=== PATIENT | female | born 1955 | race Caucasian/White ===

== ENCOUNTER 2019-12-01 11:46 | Emergency (ER) | payer OTHER ==
--- OUTSIDE RECORDS SUMMARY | 2019-12-01 11:47 | XMS REPORT | Clinical Summary ---
:1955 Author Organization [facility] Address [address] [place] [address] Care Team Providers Name Role Phone Unavailable Primary Care Provider Unavailable Allergies Not on File Medications Not on file Active Problems Not on file Social History Tobacco Use Types Packs/Day Years Used Date Never Assessed Sex Assigned at Date Recorded Not on file Job Start Date Occupation Industry Not on file Not on file Not on file Travel History Travel Start Travel End No recent travel history available. 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
--- OUTSIDE RECORDS SUMMARY | 2019-12-01 11:48 | XMS REPORT ---
:1955 Author Organization [facility] t Address [address] [place] [address] Care Team Providers Name Role Phone DR ARIES Attending Clinician Unavailable DR ARIES Admitting Clinician Unavailable Problems This patient has no known problems. Allergies, Adverse Reactions, Alerts This patient has no known allergies or adverse reactions. Social History Social Habit Start Date Stop Date Quantity Comments Source Sex Assigned At Belkis ston [facility] Medications This patient has no known medications. Procedures This patient has no known procedures. Plan of Care Planned Activity Planned Date Details Comments Source Future Scheduled 2020-02-06 INFLUENZA VACCINE [facility] Test 00:00:00 [code = INFLUENZA VACCINE] Future Scheduled 2018 65+ PNEUMOCOCCAL [facility] Test 00:00:00 VACCINE (1 of 2 - PCV13) [code = 65+ PNEUMOCOCCAL VACCINE (1 of 2 - PCV13)] Future Scheduled 2003-09-07 BREAST CANCER [facility] Test 00:00:00 SCREENING [code = BREAST CANCER SCREENING] Future Scheduled 2003-09-07 COLONOSCOPY SCREENING [facility] Test 00:00:00 [code = COLONOSCOPY SCREENING] Future Scheduled 2003-09-07 SHINGLES VACCINES (#1) [place] [facility] Test 00:00:00 [code = SHINGLES VACCINES (#1)] Encounters Start End Encounter Admission Attending Care Care Encounter Source Date/Time Date/Time Type Type Clinicians Facility Department ID 2017-05-21 2017-05-21 Outpatient JT ALVARADO [id number] [facility] 07:20:00 12[facility] Results This patient has no known results.
[2019-12-01 12:19] LABS: Basophils % 1.1 % (0-1.3); Hematocrit 40.5 % (36.0-45.0); Lymphocytes % 28.2 % (15.3-44.8); MPV 9.4 fL (7.6-11.3); RBC Red Blood Cell Count 4.45 M/uL (3.86-4.86)
[2019-12-01] MEDS ORDERED: FENTANYL CITR 100 MCG/2 ML ONE ×2 (12:21→14:39)
[2019-12-01] MEDS ORDERED: ONDANSETRON 4 MG/2 ML VIAL ONE ×2 (12:21→15:23)
[2019-12-01 12:38] LABS: Albumin 3.8 g/dL (3.4-5.0); Bilirubin Direct 0.1 mg/dL (0-0.2); Bilirubin Total 0.3 mg/dL (0.2-1.0); Potassium 3.7 mmol/L (3.5-5.1); Protein, Total 7.1 g/dL (6.4-8.2)
--- NOTE | 2019-12-01 12:38 | RAD REPORT ---
EXAM DESCRIPTION: CT - Stone Protocol - 12/01/2019 12:23 pm CLINICAL HISTORY: Flank pain. ABD PAIN COMPARISON: Abdomen Pelvis W Contrast dated 06/07/2017 TECHNIQUE: Axial images were obtained without oral or IV contrast. Lack of contrast limits solid org an and vascular assessment. The [id number] spans the entirety of the system partially obscuring uppermost abdomen and lung bases. Coronal reformatted images were obtained and reviewed. All CT scans are performed using dose optimization technique as appropriate and may include automated exposure control or mA/KV adjustment according to patient size. FINDINGS: The lower lung luna are clear. Imaged portions of the liver and spleen show no suspicious findings on non-contrast imaging.Cholecyst ectomy clips. The pancreas and adrenal glands are normal. No pathologic lymphadenopathy in the abdome n or pelvis. No urinary tract stones or obstructive uropathy. 8 mm cyst is seen lateral cortex of left kidney. No bowel obstruction, free air, free fluid or abscess. Normal appendix noted. Moderate L5-S1 spondylosis. IMPRESSION: No urinary tract stones or obstructive uropathy.
[2019-12-01] MEDS ORDERED: NA CHLORIDE 0.9% 500 ML ONE (12:54)
[2019-12-01] MEDS ORDERED: dexAMETHasone 10 MG/ML VIAL ONE (14:39)
[2019-12-01 15:53] VITALS: TEMP 97.6
[2019-12-01 15:56] VITALS: O2SAT 100
[2019-12-01 15:59] VITALS: BP 132/59
[2019-12-01 20:46] LABS: Urine Blood NEGATIVE (NEG); Urine Glucose NEGATIVE (NEG); Urine Protein NEGATIVE (NEG); Urine Specific Gravity 1.025 (1.005-1.030); Urine pH 6.5 (5.0-7.0)
--- NOTE | 2019-12-07 13:22 | ER ---
Nurse's Notes [facility] Name: Anny Acuna Age: 64 yrs Sex: Female : 1955 Arrival Date: 12/01/2019 Time: 11:47 Bed 18 Private MD: Urszula Peres C; Abdirizak Isaacs E Diagnosis: Muscle spasm of back Presentation: 11/30 11:57 Chief complaint: Patient states: Has had right lower back pain for the past week, she rb1 suspects that it is a kidney stone. Coronavirus screen: Proceed with normal triage. Ebola Screen: Patient denies travel to an Ebola-affected area in the 21 days before illness onset. Initial Sepsis Screen: Does the patient meet any 2 criteria? No. Patient's initial sepsis screen is negative. Risk Assessment: Do you want to hurt yourself or someone else? Patient reports no desire to harm self or others. Onset of symptoms was November 25, 2019. 11:57 Method Of Arrival: Ambulatory rb1 11:57 Acuity: [place] 3 rb1 11:57 Initial Sepsis Screen: Does the patient have a suspected source of infection? No. rb1 Patient's initial sepsis screen is negative. Historical: - Allergies: 11:57 Codeine; rb1 11:57 PENICILLINS; rb1 11:57 Procardia; rb1 - PMHx: 11:57 Hypertension; Migraines; Pneumonia; rb1 - PSHx: 11:57 L shoulder repair; Hysterectomy; Lithotripsy; rb1 - Immunization history:: Adult Immunizations up to date. - Social history:: Smoking status: Patient/guardian denies using. Screenin:57 Abuse screen: Denies threats or abuse. Nutritional screening: No deficits noted. rb1 Tuberculosis screening: No symptoms or risk factors identified. Fall Risk None identified. Assessment: 11:57 General: Appears uncomfortable, Behavior is calm, cooperative. Pain: Complains of pain rb1 in right mid back Pain currently is 9 out of 10 on a pain scale. Neuro: Level of Consciousness is awake, alert, obeys commands, Oriented to person, place, time, situation. Cardiovascular: Capillary refill < 3 seconds. Respiratory: Airway is patent Respiratory effort is even, unlabored, Respiratory pattern is regular, symmetrical. GI: Bowel sounds present X 4 quads. : No signs and/or symptoms were reported regarding the genitourinary system. Derm: Skin is pink, warm \T\ dry. Musculoskeletal: Range of motion: intact in all extremities. 11:57 GI: Abd is soft. rb1 12:55 Reassessment: Patient appears in no apparent distress at this time. Patient and/or rb1 family updated on plan of care and expected duration. Pain level reassessed. Patient is alert, oriented x 3, equal unlabored respirations, skin warm/dry/pink. Patient states symptoms have improved. 13:50 Reassessment: Patient appears in no apparent distress at this time. Patient and/or rb1 family updated on plan of care and expected duration. Pain level reassessed. Patient is alert, oriented x 3, equal unlabored respirations, skin warm/dry/pink. 14:50 Reassessment: Patient appears in no apparent distress at this time. No changes from rb1 previously documented assessment. 15:30 Reassessment: Patient appears in no apparent distress at this time. Patient and/or rb1 family updated on plan of care and expected duration. Pain level reassessed. Patient is alert, oriented x 3, equal unlabored respirations, skin warm/dry/pink. Vital Signs: 11:57 BP 148 / 70; Pulse 103; Resp 19; Temp 97.6; Pulse Ox 99% ; Weight 56.7 kg; Height 5 ft. rb1 3 in. (160.02 cm); Pain 9/10; 12:30 BP 113 / 52; Pulse 67; Resp 17; Pulse Ox 98% on R/A; rb1 13:30 BP 114 / 57; Pulse 65; Resp 16; Pulse Ox 100% ; rb1 14:30 BP 118 / 56; Pulse 62; Resp 17; Pulse Ox 100% ; rb1 15:30 BP 132 / 59; Pulse 64; Resp 17; Pulse Ox 100% on R/A; Pain 7/10; rb1 11:57 Body Mass Index 22.14 (56.70 kg, 160.02 cm) rb1 ED Course: 11:47 Patient arrived in ED. as 11:48 Urszula Peres MD is Private Physician. as 11:48 Abdirizak Isaacs MD is Private Physician. as 11:49 Lyndsey Sawyer, RN is Primary Nurse. rb1 11:52 Michael Powers PA is PHCP. jr8 11:52 Kehinde Hayward MD is Attending Physician. jr8 11:57 Patient has correct armband on for positive identification. Bed in low position. Call rb1 light in reach. Side rails up X 1. monitor car operator on. Pulse ox on. NIBP on. Warm blanket given. 11:57 Arm band placed on right wrist. rb1 12:00 Triage completed. rb1 12:08 Inserted saline lock: 22 gauge in right antecubital area, using aseptic technique. rb1 Blood collected. 12:24 CT Stone Protocol In Process Unspecified. EDMS 14:56 Abdirizak Isaacs MD is Referral Physician. jr8 15:37 No provider procedures requiring assistance completed. IV discontinued, intact, rb1 bleeding controlled, No redness/swelling at site. Pressure dressing applied. Administered Medications: 12:18 Drug: fentaNYL (PF) 50 mcg Route: IVP; Site: right antecubital; rb1 12:40 Follow up: Response: No adverse reaction; Pain is decreased rb1 12:19 Drug: Zofran (Ondansetron) 4 mg Route: IVP; Site: right antecubital; rb1 12:40 Follow up: Response: No adverse reaction rb1 12:54 Drug: NS 0.9% 500 ml Route: IV; Rate: bolus; Site: right antecubital; rb1 13:30 Drug: Robaxin 1 grams Route: IVPB; Infused Over: 1 hrs; Site: right antecubital; rb1 14:37 Drug: fentaNYL (PF) 50 mcg Route: IVP; Site: right antecubital; rb1 14:55 Follow up: Response: No adverse reaction; Pain is decreased rb1 14:37 Drug: Decadron - Dexamethasone 10 mg Route: IVP; Site: right antecubital; rb1 14:55 Follow up: Response: No adverse reaction rb1 Outcome: 14:56 Discharge ordered by . jr8 15:37 Patient left the ED. rb1 15:37 Discharged to home via wheelchair, with family. rb1 15:37 Condition: stable 15:37 Discharge instructions given to patient, Instructed on discharge instructions, follow up and referral plans. medication usage, Demonstrated understanding of instructions, follow-up care, medications, Prescriptions given X 2. Signatures: Dispatcher [employer] EDMS Beatriz Peter Josh, PA PA jr8 Lyndsey Sawyer, RN RN rb1
--- NOTE | 2019-12-07 13:22 | EDPHYS ---
Physician Documentation [facility] Name: Anny Acuna Age: 64 yrs Sex: Female : 1955 Arrival Date: 12/01/2019 Time: 11:47 Bed 18 Private MD: Urszula Peres C; Abdirizak Isaacs E ED Physician Kehinde Hayward HPI: 11/30 12:21 This 64 yrs old Female presents to ER via Ambulatory with complaints of jr8 Possible Kidney Stone. 12:21 The patient complains of pain in the right flank. The pain does not radiate. Onset: The jr8 symptoms/episode began/occurred acutely, 1 week(s) ago. Modifying factors: The symptoms are alleviated by change of position. Associated signs and symptoms: Pertinent positives: nausea. Severity of pain: At its worst the pain was moderate in the emergency department the pain is unchanged. It is unknown whether or not the patient has had similar symptoms in the past. The patient has not recently seen a physician. Denies trauma or injury. Historical: - Allergies: 11:57 Codeine; rb1 11:57 PENICILLINS; rb1 11:57 Procardia; rb1 - PMHx: 11:57 Hypertension; Migraines; Pneumonia; rb1 - PSHx: 11:57 L shoulder repair; Hysterectomy; Lithotripsy; rb1 - Immunization history:: Adult Immunizations up to date. - Social history:: Smoking status: Patient/guardian denies using. ROS: 12:21 Eyes: Negative for injury, pain, redness, and discharge, ENT: Negative for injury, jr8 pain, and discharge, Neck: Negative for injury, pain, and swelling, Cardiovascular: Negative for chest pain, palpitations, and edema, Respiratory: Negative for shortness of breath, cough, wheezing, and pleuritic chest pain, Abdomen/GI: Negative for abdominal pain, vomiting, diarrhea, and constipation. Positive for nausea MS/Extremity: Negative for injury and deformity, Skin: Negative for injury, rash, and discoloration, Neuro: Negative for headache, weakness, numbness, tingling, and seizure. 12:21 Back: Positive for flank pain, on the right. Exam: 12:21 Eyes: Pupils equal round and reactive to light, extra-ocular motions intact. Lids and jr8 lashes normal. Conjunctiva and sclera are non-icteric and not injected. Cornea within normal limits. Periorbital areas with no swelling, redness, or edema. ENT: Nares patent. No nasal discharge, no septal abnormalities noted. Tympanic membranes are normal and external auditory canals are clear. Oropharynx with no redness, swelling, or masses, exudates, or evidence of obstruction, uvula midline. Mucous membranes moist. Neck: Trachea midline, no thyromegaly or masses palpated, and no cervical lymphadenopathy. Supple, full range of motion without nuchal rigidity, or vertebral point tenderness. No Meningismus. Cardiovascular: Regular rate and rhythm with a normal S1 and S2. No gallops, murmurs, or rubs. Normal PMI, no JVD. No pulse deficits. Respiratory: Lungs have equal breath sounds bilaterally, clear to auscultation and percussion. No rales, rhonchi or wheezes noted. No increased work of breathing, no retractions or nasal flaring. Abdomen/GI: Soft, non-tender, with normal bowel sounds. No distension or tympany. No guarding or rebound. No evidence of tenderness throughout. Skin: Warm, dry with normal turgor. Normal color with no rashes, no lesions, and no evidence of cellulitis. MS/ Extremity: Pulses equal, no cyanosis. Neurovascular intact. Full, normal range of motion. Neuro: Awake and alert, GCS 15, oriented to person, place, time, and situation. Cranial nerves II-XII grossly intact. Motor strength 5/5 in all extremities. Sensory grossly intact. Cerebellar exam normal. Normal gait. 12:21 Back: pain, that is moderate, of the right flank and right mid back, ROM is normal, normal spinal alignment noted, CVA tenderness, that is mild, is noted on the right, vertebral tenderness, is not appreciated. Vital Signs: 11:57 BP 148 / 70; Pulse 103; Resp 19; Temp 97.6; Pulse Ox 99% ; Weight 56.7 kg; Height 5 ft. rb1 3 in. (160.02 cm); Pain 9/10; 12:30 BP 113 / 52; Pulse 67; Resp 17; Pulse Ox 98% on R/A; rb1 13:30 BP 114 / 57; Pulse 65; Resp 16; Pulse Ox 100% ; rb1 14:30 BP 118 / 56; Pulse 62; Resp 17; Pulse Ox 100% ; rb1 15:30 BP 132 / 59; Pulse 64; Resp 17; Pulse Ox 100% on R/A; Pain 7/10; rb1 11:57 Body Mass Index 22.14 (56.70 kg, 160.02 cm) rb1 MDM: 11:53 Patient medically screened. jr8 14:55 Data reviewed: vital signs, nurses notes, lab test result(s), radiologic studies, CT jr8 scan. Data interpreted: Pulse oximetry: on room air is 100 %. Interpretation: normal. Counseling: I had a detailed discussion with the patient and/or guardian regarding: the historical points, exam findings, and any diagnostic results supporting the discharge/admit diagnosis, lab results, radiology results, the need for outpatient follow up, a family practitioner, to return to the emergency department if symptoms worsen or persist or if there are any questions or concerns that arise at home. Response to treatment: the patient's symptoms have markedly improved after treatment. ED course: No acute findings on CT or labs. Discussed with patient that she most likely is having right sided back spasms. Will treat as such . 11/30 11:53 Order name: Basic Metabolic Panel; Complete Time: 12:39 [facility] 11/30 11:53 Order name: CBC with Diff; Complete Time: 12:39 [facility] 11/30 11:53 Order name: Hepatic Function; Complete Time: 12:39 11/30 11:53 Order name: Lipase; Complete Time: 12:39 [facility] 11/30 14:38 Order name: Urine Dipstick--Ancillary (enter results) eb 11/30 11:53 Order name: IV Saline Lock; Complete Time: 12:20 11/30 12:02 Order name: CT Stone Protocol; Complete Time: 12:43 11/30 11:53 Order name: Labs collected and sent; Complete Time: 13:48 jr Administered Medications: 12:18 Drug: fentaNYL (PF) 50 mcg Route: IVP; Site: right antecubital; rb1 12:40 Follow up: Response: No adverse reaction; Pain is decreased rb1 12:19 Drug: Zofran (Ondansetron) 4 mg Route: IVP; Site: right antecubital; rb1 12:40 Follow up: Response: No adverse reaction rb1 12:54 Drug: NS 0.9% 500 ml Route: IV; Rate: bolus; Site: right antecubital; rb1 13:30 Drug: Robaxin 1 grams Route: IVPB; Infused Over: 1 hrs; Site: right antecubital; rb1 14:37 Drug: fentaNYL (PF) 50 mcg Route: IVP; Site: right antecubital; rb1 14:55 Follow up: Response: No adverse reaction; Pain is decreased rb1 14:37 Drug: Decadron - Dexamethasone 10 mg Route: IVP; Site: right antecubital; rb1 14:55 Follow up: Response: No adverse reaction rb1 Disposition: 15:54 Co-signature as Attending Physician, Kehinde Hayward MD. rn Disposition: 12/01/19 14:56 Discharged to Home. Impression: Muscle spasm of back. - Condition is Stable. - Discharge Instructions: Muscle Cramps and Spasms, Back Exercises, [id number], Heat Therapy. - Prescriptions for Zanaflex 4 mg Oral Tablet - take 1 tablet by ORAL route every 8 hours As needed; 20 tablet. Medrol (Richard) 4 mg Oral Tablets, Dose Pack - take 1 tablet by ORAL route as directed - follow package instructions; 1 packet. - Medication Reconciliation Form, Thank You Letter, Antibiotic Education, Prescription Opioid Use form. - Follow up: Abdirizak Isaacs MD; When: 5 - 6 days; Reason: Recheck today's complaints, Continuance of care, Re-evaluation by your physician. - Problem is new. - Symptoms have improved. Signatures: Dispatcher [employer] EDMS Kehinde Hayward MD MD rn Roszak, Josh, PA PA jr8 Lyndsey Sawyer RN RN rb1 Corrections: (The following items were deleted from the chart) 15:37 14:56 12/01/2019 14:56 Discharged to Home. Impression: Muscle spasm of back. Condition rb1 is Stable. Forms are Medication Reconciliation Form, Thank You Letter, Antibiotic Education, Prescription Opioid Use. Follow up: Abdirizak Isaacs; When: 5 - 6 days; Reason: Recheck today's complaints, Continuance of care, Re-evaluation by your physician. Problem is new. Symptoms have improved. jr8
== END 2019-12-01 15:37 | disposition home or self-care (01) ==
LOC: ER 11:46
DX: M62.830 Muscle spasm of back (principal); I10 Essential (primary) hypertension; Z88.0 Allergy status to penicillin; Z88.5 Allergy status to narcotic agent; Z88.8 Allergy status to other drugs, medicaments and biological substances
CPT/HCPCS: 85025; 80048; 36415; 80076; 81003; 83690; 76377; 74176; 96375; 96374; 99284; J3010 ×2; J1100; J7040; J2405 ×2; J2800

== ENCOUNTER 2020-08-05 12:07 | Emergency (ER) | payer OTHER ==
--- OUTSIDE RECORDS SUMMARY | 2020-08-05 12:09 | XMS REPORT | Clinical Summary ---
:1955 Author Organization [facility] Address [address] [place] [address] Care Team Providers Name Role Phone Unavailable Primary Care Provider Unavailable Allergies Not on File Medications Not on file Active Problems Not on file Social History Tobacco Use Types Packs/Day Years Used Date Never Assessed Sex Assigned at Date Recorded Not on file Last Filed Vital Signs Not on file Plan of Treatment Health Maintenance Due Date Last Done Comments COVID-19 VACCINE (1 of 2) 1969 BREAST CANCER SCREENING 09/07/2003 COLONOSCOPY SCREENING 09/07/2003 SHINGLES VACCINES (#1) 09/07/2003 65+ PNEUMOCOCCAL VACCINE (1 of 1 - PPSV23) 2018 INFLUENZA VACCINE 02/06/2020 Results Not on fileafter 08/05/2019 Advance Directives For more information, please contact: [phone] Type Date 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
--- OUTSIDE RECORDS SUMMARY | 2020-08-05 12:09 | XMS REPORT | Continuity of Care Document ---
:1955 Author Organization [facility] t Address [address] [place] [address] Care Team Providers Name Role Phone DR ARIES Attending Clinician Unavailable DR ARIES Admitting Clinician Unavailable Problems This patient has no known problems. Allergies, Adverse Reactions, Alerts This patient has no known allergies or adverse reactions. Social History Social Habit Start Date Stop Date Quantity Comments Source Sex Assigned At Belkis ston [facility] Medications This patient has no known medications. Procedures This patient has no known procedures. Plan of Care Planned Activity Planned Date Details Comments Source Future Scheduled 2020-02[facility]06 [facility] [code = INFLUENZA VACCINE] Future Scheduled 2018 65+ PNEUMOCOCCAL [place] [facility] Test 00:00:00 VACCINE (1 of 1 - PPSV23) [code = 65+ PNEUMOCOCCAL VACCINE (1 of 1 - PPSV23)] Future Scheduled 2003-09-07 BREAST CANCER [facility] Test 00:00:00 SCREENING [code = BREAST CANCER SCREENING] Future Scheduled 2003-09-07 COLONOSCOPY SCREENING [facility] Test 00:00:00 [code = COLONOSCOPY SCREENING] Future Scheduled 2003-09-07 SHINGLES VACCINES (#1) [place] [facility] Test 00:00:00 [code = SHINGLES VACCINES (#1)] Future Scheduled 1969 COVID-19 VACCINE (1 of [place] [facility] Test 00:00:00 2) [code = COVID-19 VACCINE (1 of 2)] Encounters Start End Encounter Admission Attending Care Care Encounter Source Date/Time Date/Time Type Type Clinicians Facility Department ID 2017-05-21 2017-05-21 Outpatient JT [facility]VARADO [facility] [id number] [facility] 07:20:00 12:17:00 [facility] Results This patient has no known results.
--- NOTE | 2020-08-05 15:12 | ER ---
Nurse's Notes [facility] Name: Anny Acuna Age: 64 yrs Sex: Female : 1955 Arrival Date: 08/05/2020 Time: 12:24 Bed 11 Private MD: Diagnosis: acute allergic reaction: Moderna COVID vaccine Presentation: 08/05 13:00 Chief complaint: Patient states: Got second covid vaccine today (Moderna) right before ll1 1100 today. Started to have itching to entire body directly after the shot. Happened after the first injection but took longer to happen. Coronavirus screen: Client denies travel out of the [place] in the last 14 days. At this time, the client does not indicate any symptoms associated with coronavirus-19. Ebola Screen: Patient denies travel to an Ebola-affected area in the 21 days before illness onset. Onset: The symptoms/episode began/occurred acutely, suddenly. Anaphylaxis evaluation, no signs or symptoms of anaphylaxis were noted. Initial Sepsis Screen: Does the patient meet any 2 criteria? No. Patient's initial sepsis screen is negative. Does the patient have a suspected source of infection? No. Patient's initial sepsis screen is negative. Risk Assessment: Do you want to hurt yourself or someone else? Patient reports no desire to harm self or others. Onset of symptoms was August 05, 2020. 13:00 Method Of Arrival: Ambulatory ll1 13:00 Acuity: [place] 3 ll1 Historical: - Allergies: 12:59 Codeine; ll1 12:59 PENICILLINS; ll1 12:59 Procardia; ll1 12:59 gel caps; ll1 12:59 ANTIHISTAMINES; ll1 - PMHx: 12:59 Hypertension; Migraines; Pneumonia; ll1 - PSHx: 12:59 L shoulder repair; Hysterectomy; Lithotripsy; ll1 - Immunization history:: Flu vaccine is up to date. - Social history:: Smoking status: Patient denies any tobacco usage or history of. Screenin:23 Abuse screen: Denies threats or abuse. Denies injuries from another. Nutritional ss screening: No deficits noted. Tuberculosis screening: Never had TB. Fall Risk None identified. Assessment: 15:23 General: Appears in no apparent distress. Behavior is calm, cooperative. Pain: Denies ss pain. Neuro: Level of Consciousness is awake, alert, obeys commands, Oriented to person, place, time, situation. Cardiovascular: Capillary refill < 3 seconds is brisk in bilateral fingers Patient's skin is warm and dry. Respiratory: Airway is patent Respiratory effort is even, unlabored, Respiratory pattern is regular, symmetrical, Breath sounds are clear bilaterally. EENT: Throat is clear. Derm: Skin is pink, warm \T\ dry. Skin temperature is warm Reports itching that began just after receiving second dose of COVID vaccine. Denies difficulty breathing. Vital Signs: 13:00 BP 153 / 74; Pulse 71; Resp 15; Temp 97.6; Pulse Ox 99% ; Weight 55.34 kg; Height 5 ft. ll1 3 in. (160.02 cm); Pain 0/10; 13:00 Body Mass Index 21.61 (55.34 kg, 160.02 cm) ll1 ED Course: 12:24 Patient arrived in ED. am4 12:59 Arm band placed on. 1 13:01 Triage completed. 1 15:09 Ross Taylor MD is Attending Physician. kdr 15:12 Sharda Ponce, SHERITA is Primary Nurse. ss 15:23 Patient has correct armband on for positive identification. Bed in low position. Call ss light in reach. 15:23 No provider procedures requiring assistance completed. Patient did not have IV access ss during this emergency room visit. Administered Medications: 15:23 Drug: SOLU-Medrol 125 mg Route: IM; Site: right gluteus; ss 15:32 Follow up: Response: Medication administered at discharge. 15:23 Drug: Pepcid 20 mg Route: PO; 15:32 Follow up: Response: No adverse reaction; Medication administered at discharge. Outcome: 15:11 Discharge ordered by . kdr 15:23 Discharged to home ambulatory. ss 15:23 Condition: good 15:23 Discharge instructions given to patient, family, Instructed on discharge instructions, follow up and referral plans. medication usage, Demonstrated understanding of instructions, follow-up care, medications, Prescriptions given X 2. 15:32 Patient left the ED. ss Signatures: Ross Taylor MD MD kdr Sharda Ponce RN RN Joseph Kebede RN RN [facility] Ofelia Peter 4
--- NOTE | 2020-08-05 15:12 | EDPHYS ---
Physician Documentation [facility] Name: Anny Acuna Age: 64 yrs Sex: Female : 1955 Arrival Date: 08/05/2020 Time: 12:24 Bed 11 Private MD: ED Physician Ross Taylor HPI: 08/05 15:22 This 64 yrs old Female presents to ER via Ambulatory with complaints of kdr Allergic Reaction. Historical: - Allergies: 12:59 Codeine; ll1 12:59 PENICILLINS; ll1 12:59 Procardia; ll1 12:59 gel caps; ll1 12:59 ANTIHISTAMINES; ll1 - PMHx: 12:59 Hypertension; Migraines; Pneumonia; ll1 - PSHx: 12:59 L shoulder repair; Hysterectomy; Lithotripsy; ll1 - Immunization history:: Flu vaccine is up to date. - Social history:: Smoking status: Patient denies any tobacco usage or history of. Vital Signs: 13:00 BP 153 / 74; Pulse 71; Resp 15; Temp 97.6; Pulse Ox 99% ; Weight 55.34 kg; Height 5 ft. ll1 3 in. (160.02 cm); Pain 0/10; 13:00 Body Mass Index 21.61 (55.34 kg, 160.02 cm) ll1 MDM: 15:11 Patient medically screened. kdr Administered Medications: 15:23 Drug: SOLU-Medrol 125 mg Route: IM; Site: right gluteus; ss 15:32 Follow up: Response: Medication administered at discharge. 15:23 Drug: Pepcid 20 mg Route: PO; ss 15:32 Follow up: Response: No adverse reaction; Medication administered at discharge. Disposition: 08/05/20 15:11 Discharged to Home. Impression: acute allergic reaction: Moderna COVID vaccine. - Condition is Stable. - Discharge Instructions: Allergies, Adult, Pruritus. - Prescriptions for Pepcid 20 mg Oral Tablet - take 1 tablet by ORAL route every 12 hours for 5 days; 10 tablet. Medrol (Richard) 4 mg Oral Tablets, Dose Pack - take 1 tablet by ORAL route as directed - follow package instructions; 1 packet. - Medication Reconciliation Form, Thank You Letter, Prescription Opioid Use form. - Follow up: Private Physician; When: 2 - 3 days; Reason: If symptoms return, Further diagnostic work-up, Recheck today's complaints, Continuance of care, Re-evaluation by your physician. - Problem is new. - Symptoms have improved. Addendum: 08/18/2020 07:14 Addendum: CC: Itching s/p second Moderna COVID vaccine HPI: The patient has just k dr received her second Moderna COVID vaccine and now has itching all over her body. She had a limited and more delayed reaction to the first short. This time the reaction is more shetty and intense. She denies respiratory difficulty and is not in any apparent life threatening situation. ROS; Const: No fever, chills, Eyes: no visual changes or c/o, Neck: no pain or injury, CV: no CP or palpitations, Resp: mild SOB but no cough or congestion, Abd: no n/v/d or pain, Back: no pain or injury, : no pain or bleeding, MS/Ext: no pain, injury, swelling or tingling, Skin: No hives but diffuse itching, no lacerations, pain, injury, good skin turgor, Neuro: Grossly intact and no deficits, Psych: Appropriate for age, Allergy: no rashes but diffuse itching, EXAM: Const: WDWN WF mild distress, Head/Face: no injury, pain or deformity, Eyes: PERRLA, ENT: no pain, injury or bleeding, Neck: no pain, injury, FROM, no stridor, Chest/Axilla: No pain, injury or deformity, CV: no rubs, gallops, murmurs, regular rate and rhythm, Resp: CTAB and regular rate, Abd/GI: soft, NT, BS present in all quads and normal, Back: no injury or deformity, full ROM, MS/Ext: no injury or deformity, FROM, distal pulses good and equal, Skin: diffuse itching and minor erythema but no hives, rashes, ecchymosis and good turgor, Neuro: CN grossly intact, no other deficits, Psych: appropriate for age, no SO, HI or depression, MDM: The patient improved greatly with the interventions given. All VS, nursing notes reviewed. The patient was counseled on the results and need for follow-up. The patient was discharged in stable condition. She was happy with the care provided and the plan for discharge and follow-up. Signatures: Ross Taylor MD MD kdr Sharda Ponce RN RN ss Joseph Kebede RN RN ll1 Corrections: (The following items were deleted from the chart) 08/05 15:32 15:11 08/05/2020 15:11 Discharged to Home. Impression: acute allergic reaction: Moderna ss COVID vaccine. Condition is Stable. Forms are Medication Reconciliation Form, Thank You Letter, Antibiotic Education, Prescription Opioid Use. Follow up: Private Physician; When: 2 - 3 days; Reason: If symptoms return, Further diagnostic work-up, Recheck today's complaints, Continuance of care, Re-evaluation by your physician. Problem is new. Symptoms have improved. kdr
[2020-08-05] MEDS ORDERED: METHYLPREDNISOLONE 125 MG INJ ONE (15:29)
[2020-08-05] MEDS ORDERED: FAMOTIDINE 20 MG TAB ONE (15:30)
[2020-08-05 16:07] VITALS: BP 153/74; TEMP 97.6; O2SAT 99
== END 2020-08-05 15:32 | disposition home or self-care (01) ==
LOC: ER 12:07
DX: T80.52XA Anaphylactic reaction due to vaccination, initial encounter (principal); Z88.6 Allergy status to analgesic agent; Z88.0 Allergy status to penicillin; Z88.8 Allergy status to other drugs, medicaments and biological substances
CPT/HCPCS: 96372; 99283; J2930

== ENCOUNTER 2021-09-14 19:20 | Emergency (ER) | payer OTHER, MEDICARE ==
--- OUTSIDE RECORDS SUMMARY | 2021-09-14 19:23 | XMS REPORT | Continuity of Care Document ---
:1955 Author Organization [facility] t Address [address] [place] [address] [address]. [address] [place] [address] Care Team Providers Name Role Phone DR ARIES Attending Clinician Unavailable DR ARIES Admitting Clinician Unavailable Problems This patient has no known problems. Allergies, Adverse Reactions, Alerts This patient has no known allergies or adverse reactions. Medications This patient has no known medications. Procedures This patient has no known procedures. Encounters Start End Encounter Admission Attending Care Care Encounter Source Date/Time Date/Time Type Type Clinicians Facility Department ID 2017-05-21 2017-05-21 Outpatient [facility] [id number] [facility] 07:20:00 12:17:00 [facility] Results This patient has no known results.
[2021-09-14] MEDS ORDERED: IBUPROFEN 400 MG TAB ONE (20:04)
[2021-09-14] MEDS ORDERED: IBUPROFEN 200 MG TAB PO ONE (20:05)
[2021-09-14] MEDS ORDERED: HYDROCODONE/APAP 5/325 MG TAB ONE (20:05)
--- NOTE | 2021-09-14 20:58 | RAD REPORT ---
EXAM DESCRIPTION: RAD - Ankle Right 3 View - 09/14/2021 8:33 pm CLINICAL HISTORY: SWELLING COMPARISON: Ankle Left 3 View dated 09/22/2019 FINDINGS/IMPRESSION: Avulsion fracture at the distal fibular tip. Lateral soft tissue swelling is pr esent. No malalignment.
--- NOTE | 2021-09-14 21:14 | EDPHYS ---
Physician Documentation [facility] Name: Anny Acuna Age: 66 yrs Sex: Female : 1955 Arrival Date: 09/14/2021 Time: 19:23 Bed 9 Private MD: ED Physician Gary Tapia HPI: 09/14 20:00 This 66 yrs old Female presents to ER via Wheelchair with complaints of Ankle Swelling. cp 20:00 The patient presents with an injury, pain, that is acute, swelling, tenderness. The cp complaints affect the right ankle. Onset: The symptoms/episode began/occurred today. Context: resulted from a mis-step by the patient, The mechanism of injury involved inversion of the affected ankle. The patient can partially bear weight on the affected extremity. the patient is able to ambulate, with moderate difficulty. Associated signs and symptoms: The patient has no apparent associated signs or symptoms. Historical: - Allergies: 19:48 ANTIHISTAMINES; ld1 19:48 gel caps; ld1 19:48 Codeine; ld1 19:48 PENICILLINS; ld1 19:48 Procardia; ld1 - PMHx: 19:48 Hypertension; Migraines; Pneumonia; ld1 - Immunization history:: Adult Immunizations up to date, . - Social history:: Smoking status: Patient denies any tobacco usage or history of. Patient/guardian denies using alcohol. ROS: 20:05 Constitutional: Negative for body aches, chills, fever, poor PO intake. cp 20:05 Cardiovascular: Negative for chest pain, palpitations. 20:05 Respiratory: Negative for cough, shortness of breath, wheezing. 20:05 Abdomen/GI: Negative for abdominal pain, nausea, vomiting, and diarrhea. 20:05 MS/extremity: Positive for ecchymosis, pain, swelling, tenderness, of the lateral aspect right ankle, Negative for deformity, paresthesias. 20:05 All other systems are negative. Exam: 20:10 Constitutional: The patient appears in no acute distress, alert, awake, well developed, cp well nourished, uncomfortable. 20:10 Head/Face: Normocephalic, atraumatic. cp 20:10 Neck: ROM/movement: is normal, is supple, without pain, no range of motions limitations. 20:10 Cardiovascular: Rate: normal. 20:10 Respiratory: the patient does not display signs of respiratory distress, Respirations: normal, no use of accessory muscles, no retractions, labored breathing, is not present. 20:10 Back: pain, is absent, ROM is normal. 20:10 Musculoskeletal/extremity: Extremities: grossly normal except: noted in the lateral malleolus of right ankle: ecchymosis, pain, swelling, tenderness, ROM: limited passive range of motion due to pain, in the right ankle, Pulses: noted to be 2+ in the right dorsalis pedis artery, Sensation intact. Achilles tendon intact, no pain palpated to proximal right fibula and/or base of right fifth metatarsal. Vital Signs: 19:46 BP 148 / 76; Pulse 76; Resp 18; Temp 98.7(O); Pulse Ox 100% on R/A; Weight 67.59 kg; ld1 Height 5 ft. 5 in. (165.10 cm); Pain 7/10; 19:46 Body Mass Index 24.79 (67.59 kg, 165.10 cm) ld1 MDM: 19:49 Patient medically screened. cp 20:15 Differential diagnosis: fracture, sprain, dislocation, Achilles tendon tear, foot cp fracture. 21:12 Data reviewed: vital signs, nurses notes, radiologic studies, plain films. cp 21:12 Test interpretation: by ED physician or midlevel provider: plain radiologic studies. cp Counseling: I had a detailed discussion with the patient and/or guardian regarding: the historical points, exam findings, and any diagnostic results supporting the discharge/admit diagnosis, radiology results, the need for outpatient follow up, a orthopedic surgeon, to return to the emergency department if symptoms worsen or persist or if there are any questions or concerns that arise at home. Response to treatment: the patient's symptoms have markedly improved after treatment, and as a result, I will discharge patient. 09/14 19:32 Order name: Ankle Right 3 View XRAY em1 09/14 21:03 Order name: Walking boot; Complete Time: 21:32 cp 09/14 21:03 Order name: Crutches; Complete Time: 21:32 cp Administered Medications: 20:04 Not Given (Patient Refused): Ibuprofen 600 mg PO once tw5 20:07 Drug: HYDROcodone-acetaminophen 5 mg-325 mg 1 tabs Route: PO; tw5 21:34 Follow up: Response: Pain is decreased tw5 Disposition Summary: 09/14/21 21:13 Discharge Ordered Location: Home cp Problem: new cp Symptoms: have improved cp Condition: Stable cp Diagnosis - Nondisplaced fracture of lateral malleolus of right fibula, initial encounter for cp closed fracture - avulsion fracture Followup: cp - With: Sushant Vega MD - When: 1 week - Reason: Recheck today's complaints Discharge Instructions: - Discharge Summary Sheet cp - Ankle Fracture cp Forms: - Medication Reconciliation Form cp - Thank You Letter cp - Antibiotic Education cp - Prescription Opioid Use cp Prescriptions: - Ibuprofen 800 mg Oral Tablet - take 1 tablet by ORAL route every 8 hours As needed take with food; 30 tablet; cp Refills: 0, Product Selection Permitted - Ultracet 37.5-325 mg Oral Tablet - take 1 tablet by ORAL route every 6 hours - for up to 5 days; do not exceed 8 cp tablets per day.; 20 tablet; Refills: 0, Product Selection Permitted Addendum: 09/17/2021 19:15 Co-signature as Attending Physician, Gary Tapia MD. [facility] Signatures: Dispatcher [employer] EDMS Garrison Mendes PA PA cp Gary Tapia MD MD 7 Amanda Howe RN RN ld1 Lupe Velez tw5 Corrections: (The following items were deleted from the chart) 09/15 02:16 02:14 MS/extremity: Positive for ecchymosis, pain, swelling, tenderness, of the lateral cp aspect right ankle, Negative for deformity, paresthesias, cp 02:16 02:14 Constitutional: Negative for body aches, chills, fever, poor PO intake, cp cp 02:16 02:14 Respiratory: Negative for cough, shortness of breath, wheezing, cp cp 02:16 02:14 Cardiovascular: Negative for chest pain, palpitations, cp cp 02:16 02:14 Abdomen/GI: Negative for abdominal pain, nausea, vomiting, and diarrhea, cp cp 02:16 02:14 All other systems are negative, cp cp
--- NOTE | 2021-09-14 21:14 | ER ---
Nurse's Notes [facility] Name: Anny Acuna Age: 66 yrs Sex: Female : 1955 Arrival Date: 09/14/2021 Time: 19:23 Bed 9 Private MD: Diagnosis: Nondisplaced fracture of lateral malleolus of right fibula, initial encounter for closed fracture-avulsion fracture Presentation: 09/14 19:46 Chief complaint: Patient states: Right ankle injury. Coronavirus screen: At this time, ld1 the client does not indicate any symptoms associated with coronavirus-19. Ebola Screen: No symptoms or risks identified at this time. Initial Sepsis Screen: Does the patient meet any 2 criteria? No. Patient's initial sepsis screen is negative. Does the patient have a suspected source of infection? No. Patient's initial sepsis screen is negative. Risk Assessment: Do you want to hurt yourself or someone else? Patient reports no desire to harm self or others. Onset of symptoms was September 14, 2021. 19:46 Method Of Arrival: Wheelchair ld1 19:46 Acuity: [place] 4 ld1 Triage Assessment: 19:48 General: Appears in no apparent distress. comfortable, Behavior is calm, cooperative, ld1 appropriate for age. Pain: Complains of pain in anterior aspect of right ankle and dorsum of right foot Pain does not radiate. Pain currently is 7 out of 10 on a pain scale. Neuro: Level of Consciousness is awake, alert, obeys commands, Oriented to person, place, time, situation. Respiratory: Airway is patent Respiratory effort is even, unlabored, Respiratory pattern is regular, symmetrical. Historical: - Allergies: 19:48 ANTIHISTAMINES; ld1 19:48 gel caps; ld1 19:48 Codeine; ld1 19:48 PENICILLINS; ld1 19:48 Procardia; ld1 - PMHx: 19:48 Hypertension; Migraines; Pneumonia; ld1 - Immunization history:: Adult Immunizations up to date, . - Social history:: Smoking status: Patient denies any tobacco usage or history of. Patient/guardian denies using alcohol. Screenin:04 Abuse screen: Denies threats or abuse. Denies injuries from another. Nutritional tw5 screening: No deficits noted. Tuberculosis screening: No symptoms or risk factors identified. Fall Risk Fall in past 12 months (25 points). Assessment: 20:04 General: Reports "I was stepping off a friends porch when I stepped wrong and twisted tw5 my ankle. It really hurts. I can wiggle my toes, and I can kind of walk on it, but it more like I am dragging my foot. I can point my toes but I cannot flex my foot towards me.". Pain: Complains of pain in right ankle Pain currently is 7 out of 10 on a pain scale. Respiratory: Airway is patent Trachea midline Respiratory effort is even, unlabored. Derm: Bruising that is light blue. Musculoskeletal: Swelling present in right ankle Ice pack applied . Patient elevating foot. Vital Signs: 19:46 BP 148 / 76; Pulse 76; Resp 18; Temp 98.7(O); Pulse Ox 100% on R/A; Weight 67.59 kg; ld1 Height 5 ft. 5 in. (165.10 cm); Pain 7/10; 19:46 Body Mass Index 24.79 (67.59 kg, 165.10 cm) ld1 ED Course: 19:23 Patient arrived in ED. ag3 19:48 Triage completed. ld1 19:48 Arm band placed on right wrist. ld1 19:49 Garrison Mendes PA is PHCP. cp 19:49 Gary Tapia MD is Attending Physician. cp 19:52 Lupe Velez is Primary Nurse. tw5 20:04 Awaiting for x-ray. tw5 20:04 Patient has correct armband on for positive identification. Adult w/ patient. Door tw5 closed. Noise minimized. Moved to private room. Warm blanket given. Ice pack to injury. Verbal reassurance given. 20:04 Wound care: ice pack applied. tw5 20:33 Ankle Right 3 View XRAY In Process Unspecified. EDMS 21:12 Sushant Vega MD is Referral Physician. cp 21:23 No provider procedures requiring assistance completed. Patient did not have IV access tw5 during this emergency room visit. Administered Medications: 20:04 Not Given (Patient Refused): Ibuprofen 600 mg PO once tw5 20:07 Drug: HYDROcodone-acetaminophen 5 mg-325 mg 1 tabs Route: PO; tw5 21:34 Follow up: Response: Pain is decreased tw5 Outcome: 21:13 Discharge ordered by . cp 21:23 Discharged to home tw5 21:23 Discharged to home via wheelchair, with crutches, crutched teaching performed and demonstrated in return. 21:23 Condition: good 21:23 Discharge instructions given to patient, Instructed on discharge instructions, follow up and referral plans. Demonstrated understanding of instructions, follow-up care. 21:34 Patient left the ED. tw5 Signatures: Dispatcher [employer] EDMS Garrison Mendes PA PA cp Gomez, Alice 3 Amanda Howe, RN RN ld1 Lupe Velez tw5
[2021-09-14 21:38] VITALS: BP 148/76; TEMP 98.7; O2SAT 100
== END 2021-09-14 21:34 | disposition home or self-care (01) ==
LOC: ER 19:20
DX: S82.64XA Nondisplaced fracture of lateral malleolus of right fibula, initial encounter for closed fracture (principal); X50.1XXA Overexertion from prolonged static or awkward postures, initial encounter; Y93.89 Activity, other specified; Y92.89 Other specified places as the place of occurrence of the external cause; I10 Essential (primary) hypertension; Z88.0 Allergy status to penicillin; Z88.5 Allergy status to narcotic agent; Z88.8 Allergy status to other drugs, medicaments and biological substances
CPT/HCPCS: 99283

== ENCOUNTER 2022-07-14 17:58 | Emergency (ER) | payer OTHER, MEDICARE ==
--- OUTSIDE RECORDS SUMMARY | 2022-07-14 18:02 | XMS REPORT | Continuity of Care Document ---
:1955 Author Organization [facility] t Address [address] [place] [address] Care Team Providers Name Role Phone Peres Duke Negron Primary Care Physician Mariela Santiago RN Attending Clinician Unavailable Only, Ang Db Test Attending Clinician Unavailable Unknown, Attending Attending Clinician Unavailable RODRIGO PANIAGUA III Attending Clinician Unavailable Doctor Unassigned, [place] Attending Clinician Unavailable DR JT CHRIS Attending Clinician Unavailable DR JT CHRIS Admitting Clinician Unavailable Payers Payer Name Policy Type Policy Number Effective Date Expiration Date S ource Problems This patient has no known problems. Allergies, Adverse Reactions, Alerts Allergy Allergy Status Severity Reaction(s) Onset Inactive Treating Comm ents Source Name Type Date Date Clinician NO KNOWN Drug Active Univers ALLERGIE Class ity of [facility] Social History Social Habit Start Date Stop Date Quantity Comments Source Exposure to 2022-06-05 2022-06-15 Not sure [facility] SARS-CoV-2 (event) 00:00:00 16:57:[facility] Sex Assigned At [birth year] [facility] 00:00:00 00:00:00 Smoking Status Start Date Stop Date Source Tobacco smoking consumption unknown [facility] Medications This patient has no known medications. Procedures Procedure Date / Time Performed Performing Clinician [facility] e ASSIGNMENT OF BENEFITS 2022-06-15 23:00:20 Doctor Unassigned, No [facility] Plan of Care Planned Activity Planned Date Details Comments Source Future Scheduled 2022-07-12 COVID-19 VACCINE (#1) [facility] Test 12:38:53 [code = COVID-19 VACCINE (#1)] Future Scheduled 2022-07-12 BREAST CANCER [facility] Test 12:38:53 SCREENING [code = BREAST CANCER SCREENING] Future Scheduled 2022-07-12 COVID-19 VACCINE (#1) [facility] Test 12:38:53 [code = COVID-19 VACCINE (#1)] Future Scheduled 2022-07-12 BREAST CANCER [facility] Test 12:38:53 SCREENING [code = BREAST CANCER SCREENING] Future Scheduled 2022-07-12 COLONOSCOPY SCREENING [facility] Test 12:38:53 [code = COLONOSCOPY SCREENING] Future Scheduled 2022-07-12 SHINGLES VACCINES (1 Met [facility] Test 12:38:53 of 2) [code = SHINGLES VACCINES (1 of 2)] Future Scheduled 2022-07-12 65+ [facility] 12:38:53 VACCINE (1 - PCV) [code = 65+ PNEUMOCOCCAL VACCINE (1 - PCV)] Future Scheduled 2022-07-12 COLONOSCOPY SCREENING [facility] Test 12:38:53 [code = COLONOSCOPY SCREENING] Future Scheduled 2022-07-12 INFLUENZA VACCINE [facility] Test 12:38:53 [code = INFLUENZA VACCINE] Future Scheduled 2022-07-12 SHINGLES VACCINES (1 Met [facility] Test 12:38:53 of 2) [code = SHINGLES VACCINES (1 of 2)] Future Scheduled 2022-07-12 65+ [facility]CCAL [facility] Test 12:38:53 VACCINE (1 - PCV) [code = 65+ PNEUMOCOCCAL VACCINE (1 - PCV)] Future Scheduled 2022-07-12 INFLUENZA VACCINE [facility] Test 12:38:53 [code = INFLUENZA VACCINE] Future Scheduled 2022-06-20 COLONOSCOPY SCREENING [facility] Test 08:38:08 [code = COLONOSCOPY SCREENING] Future Scheduled 2022-06-20 SHINGLES VACCINES (1 Met [facility] Test 08:38:08 of 2) [code = SHINGLES VACCINES (1 of 2)] Future Scheduled 2022-06-20 65+ [facility]OCCAL [facility] Test 08:38:08 VACCINE (1 - PCV) [code = 65+ PNEUMOCOCCAL VACCINE (1 - PCV)] Future Scheduled 2022-06-20 INFLUENZA VACCINE [facility] Test 08:38:08 [code = INFLUENZA VACCINE] Future Scheduled 2022-06-20 COVID-19 VACCINE (#1) [facility] Hospital Test 08:38:08 [code = COVID-19 VACCINE (#1)] Future Scheduled 2022-06-20 BREAST CANCER [facility] Test 08:38:08 SCREENING [code = BREAST CANCER SCREENING] Future Scheduled 2022-06-20 COLONOSCOPY SCREENING [facility] Test 08:38:08 [code = COLONOSCOPY SCREENING] Future Scheduled 2022-06-20 [facility]ACCINES ([facility] Test 08:38:08 of 2) [code = SHINGLES VACCINES (1 of 2)] Future Scheduled 2022-06-20 65+ [facility]OCOCCAL [facility] Test 08:38:08 VACCINE (1 - PCV) [code = 65+ PNEUMOCOCCAL VACCINE (1 - PCV)] Future Scheduled 2022-06-20 INFLUENZA VACCINE [facility] Test 08:38:08 [code = INFLUENZA VACCINE] Future Scheduled 2022-06-20 COVID-19 VACCINE (#1) [facility] Test 08:38:08 [code = COVID-19 VACCINE (#1)] Future Scheduled 2022-06-20 BREAST CANCER [facility] Test 08:38:08 SCREENING [code = BREAST CANCER SCREENING] Encounters Start End Encounter Admission Attending Care Care Encounter Source Date/Time Date/Time Type Type Clinicians Facility Department ID 2021-10-06 Outpatient [facility] Common 09:40:02 [facility] 2021-09-18 Outpatient [facility] [id number] Common 09:27:03 [facility] 2022-06-16 2022-06-16 CHANDNI Quiñonez [id number] Univers 00:00:00 00:00:00 (Out) Mariela GARCIA [id number] it y of [facility] [id number] Dev as [phone] [facility] 019 Branch 2022-06-15 2022-06-15 Laboratory Only, Ang Db Test [facility] 1.2.8 [id number] [id number] Univers 16:45:00 17:00:00 Only Unknown, Attending HEALTH [id number] ity [facility] [id number] Dev as DEBBIE?BLEA [phone] Ny brendan BANDAR [address] [place] [address] MEDICAL OFFICE BUILDING 2022-06-15 2022-06-15 Outpatient R KING KHUSHBOO, [facility] [id number] Univers 16:45:00 16:45:00 RODRIGO ity of [facility] 2022-06-15 2022-06-15 Letter Doctor CHANDNI [id number] Univers 00:00:00 00:00:00 (Out) Unassigned, RADHA [id number] ity of [place] [facility] [id number] Dev as [phone] [facility] 044 Branch 2022-06-15 2022-06-15 Letter Doctor CHANDNI [id number] Univers 00:00:00 00:00:00 (Out) Unassigned, RADHA [id number] ity of [place] [facility] [id number] Dev as [phone] [facility] 044 Branch 2022-06-15 2022-06-15 Orders Doctor CHANDNI [id number] Univers 00:00:00 00:00:00 Only Unassigned, RADHA [id number] ity of [place] [facility] [id number] Dev as [phone] [facility] 009 Branch 2017-05-21 2017-05-21 Outpatient JT ALVARADO [facility] [id number] [facility] 07:20:00 12:17:00 [facility] Results This patient has no known results.
[2022-07-14] MEDS ORDERED: CYCLOBENZAPRINE 10 MG TAB ONE (18:49)
--- NOTE | 2022-07-14 19:29 | RAD REPORT ---
EXAM DESCRIPTION: RAD - Chest Pa And Lat (2 Views) - 07/14/2022 7:18 pm CLINICAL HISTORY: CHEST PAIN COMPARISON: Chest Pa And Lat (2 Views) dated 12/20/2020; Chest Single View dated 09/25/2016; Chest Sin gle View dated 09/24/2016; CHEST PA AND LAT 2 VIEW dated 07/22/2013 FINDINGS: Lines: None. Lungs: No evidence of edema or pneumonia. Pleural: No significant pleural effusions or pneumothorax. Cardiac: The heart size is within normal limits. Mediastinum: Within normal limits. Bones: No acute fractures. Other: None IMPRESSION: No acute cardiopulmonary disease.
[2022-07-14 19:32] LABS: Absolute Lymphocytes (CBC) 3.1 K/uL (0.7-4.9); Hematocrit 39.8 % (36.0-45.0); Lymphocytes % 43.6 % (15.3-44.8); MCV 89.4 fL (80-100); MPV 8.6 fL (7.6-11.3); RBC Red Blood Cell Count 4.45 M/uL (3.86-4.86)
[2022-07-14 19:56] LABS: Potassium 3.5 mmol/L (3.5-5.1)
--- NOTE | 2022-07-14 20:35 | RAD REPORT ---
EXAM DESCRIPTION: CT - Thorax Con - 07/14/2022 8:20 pm CLINICAL HISTORY: left lateral chest pain COMPARISON: Thorax Wo Con dated 12/07/2016 FINDINGS: Chest Wall: No suspicious thyroid nodules or pathologic lymphadenopathy. Lungs: No acute abnormality. Pleura: No significant effusions or pneumothorax. Mediastinum/yesy: No pathologic lymphadenopathy. Pulmonary arteries/Aorta: Limited evaluation without contrast. No aortic aneurysm. Heart: No significant pericardial effusion. Normal heart size. Upper abdomen: Cholecystectomy. Small exophytic left renal lesion measuring 10 millimeters is likely a cyst. Bones: No acute abnormality. All CT scans are performed using dose optimization technique as appropriate and may include automated exposure control or mA/KV adjustment according to patient size. IMPRESSION: No acute findings within the chest. No specific CT findings to explain left-sided chest pain. No rib fractures identified.
--- NOTE | 2022-07-14 20:41 | ER ---
Nurse's Notes [facility] Name: Anny Acuna Age: 66 yrs Sex: Female : 1955 Arrival Date: 07/14/2022 Time: 17:59 Bed 18 Private MD: Diagnosis: Chest pain, unspecified-left lateral chest wall Presentation: 07/14 18:06 Chief complaint: Patient states: woke up today with spasms/pain to Left breast area; vg1 states tender to touch. Denies any injury, states cough since June 18. Took tramadol and pain has not subsided. Coronavirus screen: Vaccine status: Patient reports receiving the 2nd dose of the covid vaccine. Client denies travel out of the [place] in the last 14 days. Ebola Screen: Patient negative for fever greater than or equal to 101.5 degrees Fahrenheit, and additional compatible Ebola Virus Disease symptoms. Initial Sepsis Screen: Does the patient meet any 2 criteria? No. Patient's initial sepsis screen is negative. Does the patient have a suspected source of infection? No. Patient's initial sepsis screen is negative. Risk Assessment: Do you want to hurt yourself or someone else? Patient reports no desire to harm self or others. Onset of symptoms was July 14, 2022. 18:06 Method Of Arrival: Ambulatory vg1 18:06 Acuity: [place] 3 vg1 Triage Assessment: 18:09 General: Appears uncomfortable, Behavior is calm, cooperative. Pain: Complains of pain vg1 in left lateral anterior chest and left breast Pain currently is 7 out of 10 on a pain scale. Respiratory: Airway is patent Respiratory effort is even, unlabored. Historical: - Allergies: 18:09 Procardia; vg1 18:09 PENICILLINS; vg1 18:09 gel caps; vg1 18:09 Codeine; vg1 18:09 ANTIHISTAMINES; vg1 - PMHx: 18:09 Hypertension; Migraines; Pneumonia; hyperlipidemia; Renal Insuff Stage #3; GERD; vg1 Partial Hysterectomy; - Immunization history:: Client reports receiving the 2nd dose of the Covid vaccine. - Social history:: Smoking status: Patient denies any tobacco usage or history of. Screenin:05 [facility] ED Fall Risk Assessment (Adult) History of falling in the last 3 months, mb9 including since admission No falls in past 3 months (0 pts) Confusion or Disorientation No (0 pts) Intoxicated or Sedated No (0 pts) Impaired Gait No (0 pts) Mobility Assist Device Used No (0 pt) Altered Elimination No (0 pt) Score/Fall Risk Level 0 - 2 = Low Risk Oriented to surroundings, Maintained a safe environment. Abuse screen: Denies threats or abuse. Nutritional screening: No deficits noted. Tuberculosis screening: No symptoms or risk factors identified. Assessment: 18:20 General: Appears in no apparent distress. uncomfortable. General: Behavior is calm, mb9 cooperative, appropriate for age. Pain: Complains of pain in left lateral anterior chest Pain radiates to left breast Pain currently is 6 out of 10 on a pain scale. Quality of pain is described as sharp, shooting, Pain began suddenly. Neuro: [place]anger Agitation-Sedation Scale (RASS): 0 - Alert and Calm Level of Consciousness is awake, alert, obeys commands, Oriented to person, place, time, situation, Appropriate for age. Cardiovascular: Heart tones S1 S2 present Rhythm is regular. 18:20 Respiratory: Airway is patent Respiratory effort is even, unlabored, Respiratory mb9 pattern is regular, symmetrical. GI: Abdomen is flat, non-distended, Bowel sounds present X 4 quads. : No signs and/or symptoms were reported regarding the genitourinary system. EENT: No signs and/or symptoms were reported regarding the EENT system. Derm: Skin is pink, warm \T\ dry. Musculoskeletal: Range of motion: intact in all extremities. 19:13 Reassessment: pt taken to XRAY via wheelchair. mb9 20:00 Reassessment: pt taken to CT. mb9 20:53 Reassessment: No changes from previously documented assessment. Neuro: Level of mb9 Consciousness is awake, alert, obeys commands, Oriented to person, place, time, situation, Appropriate for age. Cardiovascular: Rhythm is regular. Respiratory: Airway is patent Respiratory effort is even, unlabored, Respiratory pattern is regular, symmetrical. Derm: Skin is pink, warm \T\ dry. Vital Signs: 18:06 BP 124 / 59; Pulse 84; Resp 18; Temp 97.5(TE); Pulse Ox 100% ; Weight 49.9 kg; Height 5 vg1 ft. 3 in. (160.02 cm); Pain 7/10; 19:13 BP 111 / 53; Pulse 70; Resp 14; Pulse Ox 99% ; mb9 20:28 BP 130 / 45; Pulse 68; Resp 18; Pulse Ox 100% on R/A; mb9 20:54 BP 135 / 46; Pulse 70; Resp 16; Pulse Ox 100% on R/A; mb9 18:06 Body Mass Index 19.49 (49.90 kg, 160.02 cm) vg1 ED Course: 17:59 Patient arrived in ED. as 18:09 Triage completed. vg1 18:09 Arm band placed on. vg1 18:09 Placed in gown. Bed in low position. Call light in reach. Side rails up X 1. Client mb9 placed on continuous cardiac and pulse oximetry monitoring. NIBP monitoring applied. 18:19 Anny Crum, RN is Primary Nurse. mb9 18:21 Delmy Espinosa FNP-C is [facility]. kb 18:21 Kehinde Hayward MD is Attending Physician. kb 18:56 EKG done, by ED staff, reviewed by Delmy LEMOS. mb9 19:14 Inserted saline lock: 20 gauge in right antecubital area, using aseptic technique. mb9 19:20 Chest Pa And Lat (2 Views) XRAY In Process Unspecified. EDMS 20:21 CT Chest Wo Con In Process Unspecified. EDMS 20:54 No provider procedures requiring assistance completed. IV discontinued, intact, mb9 bleeding controlled, No redness/swelling at site. Pressure dressing applied. Administered Medications: 18:56 Drug: Flexeril (cyclobenzaprine) 10 mg Route: PO; mb9 19:08 Follow up: Response: No adverse reaction mb9 Medication: 20:57 VIS not applicable for this client. mb9 Outcome: 20:40 Discharge ordered by . kb 20:57 Discharged to home ambulatory. mb9 20:57 Condition: stable 20:57 Discharge instructions given to patient, Instructed on discharge instructions, follow up and referral plans. Demonstrated understanding of instructions, follow-up care, medications, Prescriptions given X 1. 20:58 Patient left the ED. mb9 Signatures: Dispatcher [employer] EDMS Delmy Espinosa FNP-C FNP-Ckb Martinez, Amelia as Garcia, Victoria, RN RN vg Anny Crum, RN RN mb9
--- NOTE | 2022-07-14 20:41 | EDPHYS ---
Physician Documentation [facility] Name: Anny Acuna Age: 66 yrs Sex: Female : 1955 Arrival Date: 07/14/2022 Time: 17:59 Bed 18 Private MD: ED Physician Kehinde Hayward HPI: 07/15 00:09 This 66 yrs old Female presents to ER via Ambulatory with complaints of l underarm/side kb pain. 00:09 The patient or guardian reports chest pain that is located primarily in the left kb lateral anterior chest. Onset: this morning. The pain does not radiate. Associated signs and symptoms: Pertinent positives: cough. The chest pain is described as sharp. Duration: The patient or guardian reports a single episode. Modifying factors: The symptoms are alleviated by nothing. the symptoms are aggravated by palpation of area. Severity of pain: At its worst the pain was moderate in the emergency department the pain is unchanged. The patient has not experienced similar symptoms in the past. The patient has not recently seen a physician. Patient reports tenderness to left lateral chest with intermittent spasms that started this morning. Denies anterior chest pain, shortness of breath. Reports cough that has been ongoing since his sinus surgery on June 18.. Historical: - Allergies: 07/14 18:09 Procardia; vg1 18:09 PENICILLINS; vg1 18:09 gel caps; vg1 18:09 Codeine; vg1 18:09 ANTIHISTAMINES; vg1 - PMHx: 18:09 Hypertension; Migraines; Pneumonia; hyperlipidemia; Renal Insuff Stage #3; GERD; vg1 Partial Hysterectomy; - Immunization history:: Client reports receiving the 2nd dose of the Covid vaccine. - Social history:: Smoking status: Patient denies any tobacco usage or history of. ROS: 07/15 00:08 Constitutional: Negative for fever, chills, and weight loss. kb Cardiovascular: Positive for chest pain, of the left lateral anterior chest. All other systems are negative. Exam: 00:08 Constitutional: This is a well developed, well nourished patient who is awake, alert, kb and in no acute distress. Head/Face: Normocephalic, atraumatic. ENT: Moist Mucous membranes Cardiovascular: Regular rate and rhythm with a normal S1 and S2. No gallops, murmurs, or rubs. No pulse deficits. Respiratory: Respirations even and unlabored. No increased work of breathing. Talking in full sentences Abdomen/GI: Soft, non-tender. No distention Skin: Warm, dry with normal turgor. Normal color. MS/ Extremity: Pulses equal, no cyanosis. Neurovascular intact. Full, normal range of motion. Neuro: Awake and alert, GCS 15, oriented to person, place, time, and situation. Moves all extremities. Normal gait. 00:08 Chest/axilla: Inspection: normal, Palpation: tenderness, that is moderate, of the left lateral anterior chest, that totally reproduces the patient's complaints, Axilla: are normal. Vital Signs: 07/14 18:06 BP 124 / 59; Pulse 84; Resp 18; Temp 97.5(TE); Pulse Ox 100% ; Weight 49.9 kg; Height 5 vg1 ft. 3 in. (160.02 cm); Pain 7/10; 19:13 BP 111 / 53; Pulse 70; Resp 14; Pulse Ox 99% ; mb9 20:28 BP 130 / 45; Pulse 68; Resp 18; Pulse Ox 100% on R/A; mb9 20:54 BP 135 / 46; Pulse 70; Resp 16; Pulse Ox 100% on R/A; mb9 18:06 Body Mass Index 19.49 (49.90 kg, 160.02 cm) vg1 MDM: 18:21 Patient medically screened. kb 07/15 00:07 Differential diagnosis: Strain, muscle spasm, contusion, pneumonia, infection, kb shingles. Data reviewed: vital signs, nurses notes. Data interpreted: Pulse oximetry: on room air is 100 %. Interpretation: normal. Counseling: I had a detailed discussion with the patient and/or guardian regarding: the historical points, exam findings, and any diagnostic results supporting the discharge/admit diagnosis, lab results, radiology results, the need for outpatient follow up, a family practitioner, to return to the emergency department if symptoms worsen or persist or if there are any questions or concerns that arise at home. ED course: Management of the patient was discussed with the following: Dr. Hayward; Independent interpretation of the following tests in the emergency department: EKG; History obtained from: Patient . 07/14 19:00 Order name: CBC with Diff; Complete Time: 19:48 kb 07/14 19:00 Order name: Basic Metabolic Panel; Complete Time: 20:15 kb 07/14 18:32 Order name: Chest Pa And Lat (2 Views) XRAY; Complete Time: 19:48 kb 07/14 20:05 Order name: CT Chest Wo Con; Complete Time: 20:37 kb 07/14 18:32 Order name: EKG; Complete Time: 18:33 kb 07/14 18:32 Order name: EKG - Nurse/Tech; Complete Time: 18:56 kb 07/14 19:00 Order name: IV Start; Complete Time: 19:14 kb Administered Medications: 07/14 18:56 Drug: Flexeril (cyclobenzaprine) 10 mg Route: PO; mb9 19:08 Follow up: Response: No adverse reaction mb9 Disposition: 07/15 15:08 Co-signature as Attending Physician, Kehinde Hayward MD. rn Disposition Summary: 07/14/22 20:40 Discharge Ordered Location: Home kb Condition: Stable kb Diagnosis - Chest pain, unspecified - left lateral chest wall kb Followup: kb - With: Private Physician - When: 2 - 3 days - Reason: Recheck today's complaints, Continuance of care, Re-evaluation by your physician Followup: kb - With: Emergency Department - When: As needed - Reason: Worsening of condition Discharge Instructions: - Discharge Summary Sheet kb - Shingles, [id number] kb - Muscle Cramps and Spasms, [id number] kb Forms: - Medication Reconciliation Form kb - Thank You Letter kb - Antibiotic Education kb - Prescription Opioid Use kb Prescriptions: - Cyclobenzaprine 10 mg Oral Tablet - take 1 tablet by ORAL route every 8 hours As needed; 15 tablet; Refills: 0, kb Product Selection Permitted Signatures: Dispatcher [employer] EDMS Delmy Espinosa, TRAVEL WRITER-C TRAVEL WRITER-Kehinde Forte MD MD rn Garcia, Victoria RN RN vg1 Anny Crum RN RN mb9 Corrections: (The following items were deleted from the chart) 07/14 20:19 19:04 Chest For PE Angio+CT.RAD.BRZ ordered. EDMS EDMS
[2022-07-14 21:13] VITALS: TEMP 97.5
[2022-07-14 21:26] VITALS: O2SAT 100
[2022-07-14 21:27] VITALS: BP 135/46
--- NOTE | 2022-07-15 16:48 | EKG ---
Test Date: 2022-07-14 Test Time: 18:50:52 Finance Assistant: MB MEASUREMENT RESULTS: Intervals: Rate: 67 FL: 168 QRSD: 100 QT: 400 QTc: 422 [place]: P: 57 FL: 168 QRS: -7 T: 15 INTERPRETIVE STATEMENTS: Normal sinus rhythm Moderate voltage criteria for LVH, may be normal variant Borderline ECG Compared to ECG 01/26/2019 12:06:53 No significant changes Electronically Signed On 07-15-22 16:47:19 IRRIGATIONIST DESIGNER by Zander Echavarria
== END 2022-07-14 20:58 | disposition home or self-care (01) ==
LOC: ER 17:58
DX: R07.89 Other chest pain (principal); R05.9 Cough, unspecified; I12.9 Hypertensive chronic kidney disease with stage 1 through stage 4 chronic kidney disease, or unspecified chronic kidney disease; N18.30 Chronic kidney disease, stage 3 unspecified; Z88.0 Allergy status to penicillin; Z88.5 Allergy status to narcotic agent; Z88.8 Allergy status to other drugs, medicaments and biological substances
CPT/HCPCS: 36415; 71046; 71250; 80048; 85025; 93005; 99284

== ENCOUNTER 2022-08-01 18:06 | Inpatient (IN) | payer OTHER, MEDICARE ==
--- OUTSIDE RECORDS SUMMARY | 2022-08-01 21:26 | XMS REPORT | Continuity of Care Document ---
:1955 Author Organization [facility] t Address [address] [place] [address] Care Team Providers Name Role Phone Peres Duke Negron Primary Care Physician Mariela Santiago RN Attending Clinician Unavailable Only, Ang Db Test Attending Clinician Unavailable Unknown, Attending Attending Clinician Unavailable RODRIGO PANIAGUA III Attending Clinician Unavailable Doctor Unassigned, [place] Attending Clinician Unavailable DR JT CHRIS Attending [...] Drug Active Univers ALLERGIE Class ity of [facility] Social History Social Habit Start Date Stop Date Quantity Comments Source Exposure to 2022-06-05 2022-06-15 Not sure [facility] SARS-CoV-2 (event) 00:00:00 16:57:00 [facility] Sex Assigned At [birth year] [facility] 00:00:00 00:00:00 Center Smoking Status Start Date Stop Date Source Tobacco smoking consumption unknown [facility] Medications This patient has no known medications. Procedures Procedure Date / Time Performed Performing Clinician Sour e ASSIGNMENT OF BENEFITS 2022-06-15 23:00:20 Doctor Unassigned, No [facility] Plan of Care Planned Activity Planned Date Details Comments Source Future Scheduled 2022-08-01 COVID-19 VACCINE (#1) [facility] Test 21:25:39 [code = COVID-19 VACCINE (#1)] Future Scheduled 2022-08-01 BREAST CANCER [facility] Test 21:25:39 SCREENING [code = BREAST CANCER SCREENING] Future Scheduled 2022-08-01 COLONOSCOPY SCREENING [facility] Test 21:25:39 [code = COLONOSCOPY SCREENING] Future Scheduled 2022-08-01 SHINGLES VACCINES (1 [facility] Test 21:25:39 of 2) [code = SHINGLES VACCINES (1 of 2)] Future Scheduled 2022-08-01 65+ [facility]CCAL [facility] 21:25:39 VACCINE (1 - PCV) [code = 65+ PNEUMOCOCCAL VACCINE (1 - PCV)] Future Scheduled 2022-08-01 [facility]ACCINE [facility] 21:25:39 [code = INFLUENZA VACCINE] Future Scheduled 2022-07-12 [facility] 12:38:53 [code = INFLUENZA VACCINE] Future Scheduled 2022-07-12 COVID-19 VACCINE (#1) [facility] Test 12:38:53 [code = COVID-19 VACCINE (#1)] Future Scheduled 2022-07-12 BREAST CANCER [facility] Test 12:38:53 SCREENING [code = BREAST CANCER SCREENING] Future Scheduled 2022-07-12 COLONOSCOPY SCREENING [facility] Test 12:38:53 [code = COLONOSCOPY SCREENING] Future Scheduled 2022-07-12 SHINGLES VACCINES (1 [facility] Test 12:38:53 of 2) [code = SHINGLES VACCINES (1 of 2)] Future Scheduled 2022-07-12 65+ [facility]OCCAL [facility] Test 12:38:53 VACCINE (1 - PCV) [code = 65+ PNEUMOCOCCAL VACCINE (1 - PCV)] Future Scheduled 2022-07-12 [facility]ACCINE [facility] 12:38:53 [code = INFLUENZA VACCINE] Future Scheduled 2022-07-12 COVID-19 VACCINE (#1) [facility] Test 12:38:53 [code = COVID-19 VACCINE (#1)] Future Scheduled 2022-07-12 BREAST CANCER [facility] Test 12:38:53 SCREENING [code = BREAST CANCER SCREENING] Future Scheduled 2022-07-12 COLONOSCOPY SCREENING [facility] Test 12:38:53 [code = COLONOSCOPY SCREENING] Future Scheduled 2022-07-12 SHINGLES VACCINES (1 [facility] Test 12:38:53 of 2) [code = SHINGLES VACCINES (1 of 2)] Future Scheduled 2022-07-12 65+ [facility]OCOCCAL [facility] Test 12:38:53 VACCINE (1 - PCV) [code = 65+ PNEUMOCOCCAL VACCINE (1 - PCV)] Future Scheduled 2022-07-12 INFLUENZA VACCINE [facility] Test 12:38:53 [code = INFLUENZA VACCINE] Future Scheduled 2022-07-12 COVID-19 VACCINE (#1) [facility] Test 12:38:53 [code = COVID-19 VACCINE (#1)] Future Scheduled 2022-07-12 BREAST CANCER [facility] Test 12:38:53 SCREENING [code = BREAST CANCER SCREENING] Future Scheduled 2022-07-12 COLONOSCOPY SCREENING [facility] Test 12:38:53 [code = COLONOSCOPY SCREENING] Future Scheduled 2022-07-12 COVID-19 VACCINE (#1) [facility] Test 12:38:53 [code = COVID-19 VACCINE (#1)] Future Scheduled 2022-07-12 SHINGLES VACCINES (1 [facility] Test 12:38:53 of 2) [code = SHINGLES VACCINES (1 of 2)] Future Scheduled 2022-07-12 65+ [facility]OCCAL [facility] Test 12:38:53 VACCINE (1 - PCV) [code = 65+ PNEUMOCOCCAL VACCINE (1 - PCV)] Future Scheduled 2022-07-12 INFLUENZA VACCINE [facility] Test 12:38:53 [code = INFLUENZA VACCINE] Future Scheduled 2022-07-12 BREAST CANCER [facility] Test 12:38:53 SCREENING [code = BREAST CANCER SCREENING] Future Scheduled 2022-07-12 COLONOSCOPY SCREENING [facility] Test 12:38:53 [code = COLONOSCOPY SCREENING] Future Scheduled 2022-07-12 SHINGLES VACCINES (1 [facility] Test 12:38:53 of 2) [code = SHINGLES VACCINES (1 of 2)] Future Scheduled 2022-07-12 65+ PNEUMOCOCCAL [facility] Test 12:38:53 VACCINE (1 - PCV) [code = 65+ PNEUMOCOCCAL VACCINE (1 - PCV)] Future Scheduled 2022-06-20 BREAST CANCER [facility] Test 08:38:08 SCREENING [code = BREAST CANCER SCREENING] Future Scheduled 2022-06-20 [facility]OSCOPY [facility]CRE[facility]ING [facility] Test 08:38:08 [code = COLONOSCOPY SCREENING] Future Scheduled 2022-06-20 SHINGLES VACCINES (1 [facility] Test 08:38:08 of 2) [code = SHINGLES VACCINES (1 of 2)] Future Scheduled 2022-06-20 65+ [facility]OCCAL [facility] Test 08:38:08 VACCINE (1 - PCV) [code = 65+ PNEUMOCOCCAL VACCINE (1 - PCV)] Future Scheduled 2022-06-20 [facility]ZA [facility]ACCINE [facility] Test 08:38:08 [code = INFLUENZA VACCINE] Future Scheduled 2022-06-20 COVID-19 VACCINE (#1) [facility] Test 08:38:08 [code = COVID-19 VACCINE (#1)] Future Scheduled 2022-06-20 BREAST CANCER [facility] Test 08:38:08 SCREENING [code = BREAST CANCER SCREENING] Future Scheduled 2022-06-20 COLONOSCOPY SCREENING [facility] Test 08:38:08 [code = COLONOSCOPY SCREENING] Future Scheduled 2022-06-20 SHINGLES VACCINES (1 [facility] Test 08:38:08 of 2) [code = SHINGLES VACCINES (1 of 2)] Future Scheduled 2022-06-20 65+ [facility]OCCAL [facility] Test 08:38:08 VACCINE (1 - PCV) [code = 65+ PNEUMOCOCCAL VACCINE (1 - PCV)] Future Scheduled 2022-06-20 INFLUENZA [facility]ACCINE [facility] Test 08:38:08 [code = INFLUENZA VACCINE] Future Scheduled 2022-06-20 COVID-19 VACCINE (#1) [facility] Test 08:38:08 [code = COVID-19 VACCINE (#1)] Encounters Start End Encounter Admission Attending Care Care Encounter Source Date/Time Date/Time Type Type Clinicians Facility Department ID 2021-10-06 Outpatient [facility] [id number] Common 09:40:02 [facility] 2021-09-18 Outpatient [facility] [id number] Common 09:27:03 [facility] 2022-06-16 2022-06-16 CHANDNI Quiñonez [id number] Univers 00:00:00 00:00:00 (Out) Mariela WHITLEYY [id number] it y of HOSPITAL [id number] Dev as [phone] [facility] [address] 2022-06-15 2022-06-15 Laboratory Only, Ang Db Test [facility] 1.2.8 [id number] Univers 16:45:00 17:00:00 Only Unknown, Attending HEALTH [id number] ity of [place] [id number] Dev as DEBBIE?BLEA [phone] [address] MEDICAL OFFICE BUILDING 2022-06-15 2022-06-15 Outpatient R III, [facility] [id number] Univers 16:45:00 16:45:00 RODRIGO ity of [facility] 2022-06-15 2022-06-15 Letter Doctor CHANDNI [id number] Univers 00:00:00 00:00:00 (Out) Unassigned, ARDHA [id number] ity of [place] [facility] [id number] Dev as [id number] [facility] [address] 2022-06-15 2022-06-15 Letter Doctor CHANDNI [id number] Univers 00:00:00 00:00:00 (Out) Unassigned, RADHA [id number] ity of [place] [facility] [id number] Dev as [phone] [facility] [address] 2022-06-15 2022-06-15 Orders Doctor CHANDNI [id number] Univers 00:00:00 00:00:00 Only Unassigned, RADHA [id number] ity of [place] [facility] [id number] Dev as [phone] [facility] [address] 2017-05-21 2017-05-21 Outpatient JT ALVARADO [facility] [id number] [facility] 07:20:00 12:17:00 [facility] Results This patient has no known results.
[2022-08-01 21:45] VITALS: BMI 19.6
[2022-08-01] MEDS ORDERED: Ciprofloxacin 200mg IV 200 MG/100 ML IV.SOLN. IV ONE (21:46)
[2022-08-01] MEDS ORDERED: AMITRIPTYLINE 25 MG TAB PO ONE (21:49)
[2022-08-01] MEDS ORDERED: ONDANSETRON 4 MG/2 ML VIAL IV PRN (21:51)
[2022-08-01] MEDS ORDERED: ACETAMINOPHEN 500 MG TAB PO PRN (21:51)
[2022-08-01 22:09] LABS: Absolute Lymphocytes (CBC) 2.1 K/uL (0.7-4.9); Hematocrit 43.5 % (36.0-45.0); Lymphocytes % 32.9 % (15.3-44.8); MCV 88.5 fL (80-100); MPV 8.5 fL (7.6-11.3); RBC Red Blood Cell Count 4.91 M/uL (3.86-4.86)
[2022-08-01] MEDS: D5 0.9 NS 1,000 ML IV SCH (22:18)
[2022-08-01 22:22] LABS: Albumin 3.8 g/dL (3.4-5.0); Bilirubin Total 0.6 mg/dL (0.2-1.0); Magnesium 2.3 mg/dL (1.6-2.4); Potassium 3.3 mmol/L (3.5-5.1); Protein, Total 7.7 g/dL (6.4-8.2)
[2022-08-01] MEDS ORDERED: POTASSIUM CL SA 10 MEQ TAB PO ONE (22:28)
[2022-08-01] MEDS ORDERED: NA CHLORIDE 0.9% 500 ML IV ONE (23:09)
[2022-08-01] MEDS ORDERED: NA CHLORIDE 0.9% 500 ML ONE (23:12)
[2022-08-02] MEDS: METRONIDAZOLE 500mg IVPB 500 MG/100 ML BAG IV SCH ×3 (00:21→16:27)
[2022-08-02] MEDS ORDERED: PNEUMOCOCCAL VACCINE 0.5 ML IMVAC ONE (08:00)
[2022-08-02] MEDS: Ciprofloxacin 200mg IV 200 MG/100 ML IV.SOLN. IV SCH ×2 (08:03→21:01)
[2022-08-02] MEDS: FAMOTIDINE 20 MG/2 ML VIAL IV SCH (08:03)
[2022-08-02] MEDS: ENOXAPARIN 30 MG/0.3 ML SQ SCH (08:03)
--- NOTE | 2022-08-02 08:16 | HP ---
Date of Admission: 08/01/2022 Chief Complaint: Diarrhea and feeling weak. History Of Present Illness: This is a 66-year-old very pleasant female patient, who started to have diarrhea as of July 30, 2022. She has tried taking Imodium and Pepto-Bismol at home and that has not help and today she took her 's Lomotil. She is also having left lower quadrant pain assoc iated with this diarrhea. No blood in stool. Her diarrhea frequency is more than 10 times a day as she reports. She is feeling very weak and tired. Has very poor appetite. Yesterday for the entire day, she had only 4 crackers and today she had about 2 ounces of Ensure type of nutritional supplemen t and some water. After she was evaluated at office, decision was made to admit her to hospital. Allergies: PENICILLIN CAUSING RASH, SULFA CAUSING NAUSEA AND VOMITING, NIFEDIPINE CAUSING PAROXYSMAL VENTRICULAR CONTRACTIONS, NIACIN CAUSING JOINT PAIN, CODEINE CAUSING RESPIRATORY DISTRESS, MORPHINE CAUSING ITCHING, BONIVA CAUSES JOINT PAIN, AND AMLODIPINE CAUSES FATIGUE, NAUSEA, RASH AND ITCHING. Medications: List reviewed. Review of Systems: GI: As mentioned above. Constitutional: As mentioned above. All other systems reviewed and negative. Past Medical History: Significant for hypertension, migraine, vertigo, mixed hyperlipidemia, osteope carolyn, vitamin D deficiency, chronic kidney disease stage 3. Past Surgical History: Tubal ligation, hysterectomy, shoulder surgery. Family History: Father had hypertension, stroke, diabetes. Mother had breast cancer, congestive hea rt failure, diabetes, hypertension, and Alzheimer disease. Social History: Negative for smoking. Negative for alcohol use. Physical Examination: Vital Signs: At office; blood pressure 109/73, pulse of 112, temperature 97.5, respiratory rate 16. Weight 111 pounds, height 63 inches. General: Awake, alert, oriented, not in distress. HEENT: Unremarkable except dry oral mucosa. Neck: Supple. No JVD, lymph nodes, bruit, thyromegaly noted. Lungs: Bilateral good equal air entry. Clear to auscultation. No rhonchi. No rales. Heart: Normal heart sounds, no murmur or gallop. Abdomen: Soft. Bowel sounds normoactive. No guarding, rigidity, distention. No bruit. No hepatos plenomegaly. The patient does have tenderness in the left lower quadrant and it is mild tenderness. Extremities: No leg edema. No calf tenderness. Skin: No rash, ulcer, cellulitis. Lymphatics: No lymph node enlargement in neck, supraclavicular, infraclavicular region. Neuro: No focal neurological deficit. Chest: Unremarkable. External Genitalia: Deferred. Rectal: Deferred. Laboratory Data: White count 6.4, hemoglobin 14.5, platelets 360. Sodium 138, potassium 3.3, chlori de 106, bicarb 24, BUN 23, creatinine 1.50, glucose 104, AST 107, ALT 67. COVID-19 test negative. Impression: 1.Acute gastroenteritis. 2.Rule out acute diverticulitis. 3.Volume depletion. 4.Hypertension. 5.Mixed hyperlipidemia. 6.Chronic kidney disease, stage 3A. 7.Hypokalemia. 8.Vertigo. 9.Migraine. Plan: We will go ahead and admit the patient to hospital for further evaluation and management of th is problem. Initially, our plan was to admit her to hospital as observation, but after she was admit nik to the hospital, nurse contacted me and informed me that the patient had significant drop in her blood pressure with systolic blood pressure dropping around 80 and she felt like she might actually f aint and passed out. She was having some nausea also around that time. With this, I have requested nursing staff to change her admission status to inpatient as I believe the patient will be now expect ed to spend at least 2 midnights in hospital. When nurse contacted me with this drop in the blood pr essure, IV fluid bolus of 500 cc fluid was ordered and after that, we will continue maintenance IV fl uid. Empiric antibiotics, Cipro and Flagyl were ordered and we will continue that. DVT prophylaxis will be given using Lovenox per order. We will plan to do CAT scan of abdomen and pelvis without con trast and stool was ordered for culture as well as C diff and we will follow up on that result. Repl velvet potassium per electrolyte replacement protocol. She was recently started on amitriptyline for he r vertigo and we will continue that. For her gastroesophageal reflux disease, she takes famotidine a nd we will continue that per order. Abnormal liver function tests will not require any further inter vention except monitoring at this time. At home, she takes hydrochlorothiazide, we will hold that at present time. She also takes lisinopril, which we will hold at this time until her blood pressure c omes up and we will restart antihypertensive medication at appropriate time. We will hold her choles terol therapy at this time as well. Lovenox will be started tomorrow for DVT prophylaxis. Details a nd plan of treatment discussed with her. KALLI/BOAZ Voice ID: [id number]
--- NOTE | 2022-08-02 09:48 | RAD REPORT ---
EXAM DESCRIPTION: CT - Abdomen Pelvis Wo Contrast - 08/02/2022 9:37 am CLINICAL HISTORY: Abdominal pain. LLQ pain, diarrhea COMPARISON: Abdomen Pelvis W Contrast dated 12/20/2020 TECHNIQUE: CT imaging of the abdomen and pelvis was performed without contrast. Solid organ and vasc ular assessment is limited due to lack of IV contrast. All CT scans are performed using dose optimization technique as appropriate and may include automated exposure control or mA/KV adjustment according to patient size. FINDINGS: The lower lung luna are clear.Cholecystectomy. The liver, spleen, pancreas, adrenal glands and kidneys are within normal limits for a limited non-co ntrast examination. No bowel obstruction, free air, free fluid or abscess. The appendix is normal. The osseous structures are within normal limits. IMPRESSION: No acute intra-abdominal or pelvic findings. A limited non-contrast examination was performed as detailed.
[2022-08-02 11:45] LABS: C.diff Antigen/Toxin Ag neg : Tox neg (NEG : NEG)
[2022-08-02] MEDS: D5 0.9 NS 1,000 ML IV SCH (12:12)
[2022-08-02] MEDS ORDERED: AMITRIPTYLINE 25 MG TAB PO SCH (21:00)
[2022-08-03] MEDS: METRONIDAZOLE 500mg IVPB 500 MG/100 ML BAG IV SCH ×2 (00:39→09:18)
[2022-08-03] MEDS: D5 0.9 NS 1,000 ML IV SCH (00:40)
[2022-08-03 04:16] LABS: Absolute Lymphocytes (CBC) 1.9 K/uL (0.7-4.9); Hematocrit 32.8 % (36.0-45.0); Lymphocytes % 47.9 % (15.3-44.8); MCV 89.5 fL (80-100); MPV 9.1 fL (7.6-11.3); RBC Red Blood Cell Count 3.67 M/uL (3.86-4.86)
[2022-08-03 04:36] LABS: Albumin 2.7 g/dL (3.4-5.0); Bilirubin Total 0.2 mg/dL (0.2-1.0); Potassium 3.7 mmol/L (3.5-5.1); Protein, Total 5.5 g/dL (6.4-8.2)
--- NOTE | 2022-08-03 08:11 | PN ---
Date of Progress Note: 08/02/2022 Subjective: The patient was seen this morning for followup. No new complaints or problems reported. Lying in bed, not in distress. No bowel movement since she was admitted to hospital. Her abdomina l pain in the left lower quadrant has remained unchanged. Objective: Vital Signs: Reviewed. HEENT: Unremarkable. Lungs: Clear to auscultation. Heart: Sounds normal. Abdomen: Soft. Bowel sounds normal. No guarding, rigidity, distention. Presence of left lower reema drant tenderness unchanged from yesterday. Extremities: No leg edema. Laboratory Data: Stool for C diff came back negative. CAT scan of the abdomen and pelvis done today without contrast came back negative. Impression: 1.Acute gastroenteritis. 2.Volume depletion. 3.Hypertension. Plan: We will go ahead and continue current IV fluid, continue current antibiotics. Ambulation was encouraged and I will see her tomorrow for followup. We will repeat blood work tomorrow. Depending on her condition, we will decide if we can possibly discharge her to go home tomorrow or not. KALLI/MODL Voice ID: [id number] Report ID: [id number]
[2022-08-03] MEDS ORDERED: POTASSIUM 25 MEQ EFFERV TAB PO ONE (09:00)
[2022-08-03] MEDS: FAMOTIDINE 20 MG/2 ML VIAL IV SCH (09:18)
[2022-08-03] MEDS: ENOXAPARIN 30 MG/0.3 ML SQ SCH (09:18)
[2022-08-03] MEDS: Ciprofloxacin 200mg IV 200 MG/100 ML IV.SOLN. IV SCH (09:20)
[2022-08-03 10:42] VITALS: BP 134/61; TEMP 97.6
--- NOTE | 2022-08-03 14:05 | DS ---
Date of Discharge: 08/03/2022 Disposition: Discharged to go home. Physical Examination: HEENT: Unremarkable. Lungs: Clear to auscultation. Heart: Sounds normal. Abdomen: Soft. Bowel sounds normal. No guarding, rigidity, tenderness, distention. Extremities: No leg edema. Laboratory Data: Upon admission; white count 6.4, hemoglobin 14.5, platelets 360. Today; white count 4, hemoglobin 10.9, platelets 262. Upon admission; sodium 138, potassium 3.3, chloride 106, bicarb 24, BUN 23, creatinine 1.50, glucose 104. Liver function tests; AST 107, ALT 67, alkaline phosphatase 73. Today; sodium 147, potassium 3.7, chloride 117, bicarb 24, BUN 13, creatinine 1.19, glucose 118, AST 55, ALT 78, alkaline phosphatase 56. Discharge Medications And Instructions: Continue all prior home medications except following changes; 1. Cipro 250 mg 2 times a day with food for 1 week. 2. Metronidazole 250 mg 3 times a day with food for 1 week. 3. Follow up at my office next week on Saturday or . 4. Check your blood pressure 2 times a day and depending on that blood pressure, decision will be made to restart lisinopril and hydrochlorothiazide as below. Do not take any lisinopril if your systolic blood pressure is less than 120. 5. If your systolic blood pressure is 120-130, then take lisinopril 40 mg half a tablet dose at bedtime. 6. If your systolic blood pressure is higher than 130 and take lisinopril 40 mg 1 tablet. 7. Start hydrochlorothiazide in 1 week from today. Hospital Course: A 66-year-old very pleasant female patient admitted to the hospital with diarrhea and complaining of feeling weak. Please see dictated H and P for more information. After the patient was evaluated at office, she was admitted to the hospital with acute gastroenteritis and volume depletion. After she was admitted to the hospital, she had a near syncopal episode with a drop in the blood pressure, around systolic blood pressure in the 80 range. IV fluid bolus of 500 cc normal saline was given and maintenance IV fluid was continued after that. She was started on Cipro and metronidazole, and her stool C diff came back negative. Overall, her condition has improved. She is tolerating diet very well and feels a lot better. CAT scan of the abdomen and pelvis without contrast was negative. The patient is tolerating diet very well ambulating well and her vital signs are stable and today she will be discharged to go home in stable condition with above-mentioned medications and instructions. Final Diagnoses: 1. Acute gastroenteritis. 2. Volume depletion. 3. Hypertension. 4. Mixed hyperlipidemia. 5. Hypokalemia. 6. Chronic kidney disease, stage 3A. 7. Anemia, unspecified. 8. Vertigo. 9. Migraine. KALLI/MODL Voice ID: [id number] Report ID: [id number] MTDD
== END 2022-08-03 11:22 | disposition home or self-care (01) | DRG 392 ==
LOC: 4TH 21:22 → INTOOBSV 23:25 → OBSVTOIN 23:25
PROVIDERS: ADMIT Internal Medicine; ATTEND Internal Medicine
DX: K52.9 Noninfective gastroenteritis and colitis, unspecified (principal); E86.9 Volume depletion, unspecified; I12.9 Hypertensive chronic kidney disease with stage 1 through stage 4 chronic kidney disease, or unspecified chronic kidney disease; N18.31 Chronic kidney disease, stage 3a; E87.6 Hypokalemia; E78.2 Mixed hyperlipidemia; R42 Dizziness and giddiness; G43.909 Migraine, unspecified, not intractable, without status migrainosus; E55.9 Vitamin D deficiency, unspecified; M85.80 Other specified disorders of bone density and structure, unspecified site; Z88.0 Allergy status to penicillin; Z88.2 Allergy status to sulfonamides; Z88.5 Allergy status to narcotic agent; Z88.8 Allergy status to other drugs, medicaments and biological substances; Z90.710 Acquired absence of both cervix and uterus; Z20.822 Contact with and (suspected) exposure to COVID-19; Z82.3 Family history of stroke; Z82.49 Family history of ischemic heart disease and other diseases of the circulatory system; Z83.3 Family history of diabetes mellitus; Z80.3 Family history of malignant neoplasm of breast
CPT/HCPCS: 36415; 74176; 80053; 82947; 83735; 84132; 85025; 87045; 87046; 87324; G0378; G0379; J0744; J1650; J2405; J7040; J7042; U0003

== ENCOUNTER 2024-05-29 17:38 | Emergency (ER) | payer OTHER ==
[2024-05-29] MEDS ORDERED: predniSONE 20 MG TAB ONE (18:53)
[2024-05-29] MEDS ORDERED: ALBUTEROL 2.5 MG/3 ML NEB SOL ONE (18:53)
[2024-05-29] MEDS ORDERED: IPRATROPIUM BROM 0.5MG/2.5ML ONE (18:53)
[2024-05-29] MEDS ORDERED: AZITHROMYCIN 250 MG TAB ONE (18:54)
[2024-05-29] MEDS ORDERED: BENZONATATE 100 MG CAP PO ONE (18:54)
--- NOTE | 2024-05-29 19:28 | RAD REPORT ---
Procedure: Chest Single View HISTORY: Cough COMPARISON: September 2023 FINDINGS: The lungs appear clear of acute infiltrate. No significant pleural effusion noted. The heart is normal size. IMPRESSION: No acute abnormality is displayed.
--- NOTE | 2024-05-29 19:40 | ER ---
Nurse's Notes [facility] Name: Anny Acuna Age: 68 yrs Sex: Female : 1955 Arrival Date: 05/29/2024 Time: 17:38 Bed 9 Private MD: Diagnosis: Mild intermittent asthma with (acute) exacerbation Presentation: 05/29 17:57 Chief complaint: Patient states: Patient c/o cough and post nasal drainage for the past ss 3 days. Patient states that the severity of the cough is causing her chest pain. Coronavirus screen: Vaccine status: Patient reports receiving the 2nd dose of the covid vaccine. At this time, the client does not indicate any symptoms associated with coronavirus-19. Ebola Screen: No symptoms or risks identified at this time. Initial Sepsis Screen: Does the patient meet any 2 criteria? No. Patient's initial sepsis screen is negative. Does the patient have a suspected source of infection? No. Patient's initial sepsis screen is negative. Risk Assessment: Do you want to hurt yourself or someone else? Patient reports no desire to harm self or others. Onset of symptoms was May 26, 2024. 17:57 Method Of Arrival: Ambulatory ss 17:57 Acuity: [place] 4 ss Triage Assessment: 17:59 General: Appears in no apparent distress. uncomfortable, Behavior is calm, cooperative, ss appropriate for age. Pain: Complains of pain in anterior aspect of right upper chest and mid-sternal area Pain currently is 5 out of 10 on a pain scale. Neuro: No deficits noted. Cardiovascular: No deficits noted. Respiratory: Reports cough that is productive, persistent. Historical: - Allergies: 17:58 ANTIHISTAMINES; ss 17:58 Codeine; ss 17:58 gel caps; ss 17:58 PENICILLINS; ss 17:58 Procardia; ss - PMHx: 17:58 GERD; Hyperlipidemia; Hypertension; Migraines; partial hysterectomy; Pneumonia; Renal ss Insuff Stage #3; - Immunization history:: Adult Immunizations up to date, Client reports receiving the 2nd dose of the Covid vaccine. - Infectious Disease History:: Denies. - Social history:: Smoking status: Patient denies any tobacco usage or history of. Screenin:58 [facility] ED Fall Risk Assessment (Adult) History of falling in the last 3 months, jb4 including since admission No falls in past 3 months (0 pts) Confusion or Disorientation No (0 pts) Intoxicated or Sedated No (0 pts) Impaired Gait No (0 pts) Mobility Assist Device Used No (0 pt) Altered Elimination No (0 pt) Score/Fall Risk Level 0 - 2 = Low Risk Oriented to surroundings, Maintained a safe environment. Abuse screen: Denies threats or abuse. Nutritional screening: No deficits noted. Tuberculosis screening: No symptoms or risk factors identified. Assessment: 19:58 Reassessment: Patient appears in no apparent distress at this time. Patient and/or jb4 family updated on plan of care and expected duration. Pain level reassessed. Patient is alert, oriented x 3, equal unlabored respirations, skin warm/dry/pink. Vital Signs: 17:57 BP 165 / 75; Pulse 86; Resp 19; Temp 98.3; Pulse Ox 100% ; Weight 52.62 kg; ss ED Course: 17:41 Patient arrived in ED. mg5 17:51 Tray Garcia MD is Attending Physician. ec2 17:58 Triage completed. ss 19:16 CXR XRAY In Process Unspecified. EDMS 19:58 Patient has correct armband on for positive identification. Bed in low position. Call jb4 light in reach. Side rails up X 1. Provided Education on: discharge instructions.. 19:58 No provider procedures requiring assistance completed. Patient did not have IV access jb4 during this emergency room visit. Patient maintains SpO2 saturation greater than 95% on room air. Administered Medications: 19:01 Drug: DuoNeb Nebulize (3:1) (2.5 mg - 0.5 mg) 3 ml Nebulizer once Route: Nebulizer; ss 19:01 Drug: predniSONE PO 40 mg PO once Route: PO; ss 19:01 Drug: AZITHromycin PO 500 mg PO once Route: PO; ss 19:02 Drug: Tessalon Perle PO 200 mg PO once Route: PO; Medication: 19:58 VIS not applicable for this client. jb4 Outcome: 19:40 Discharge ordered by . ec2 19:58 Discharged to home ambulatory, jb4 19:58 Condition: stable 19:58 Discharge instructions given to patient, Instructed on discharge instructions, follow up and referral plans. medication usage, Demonstrated understanding of instructions, follow-up care, medications, Prescriptions given X 3, 19:59 Patient left the ED. jb4 Signatures: Dispatcher [employer] Sharda Gore RN RN ss Bernardo Hopkins RN RN jb4 Vivien Zheng 5 Tray Garcia MD MD ec2
--- NOTE | 2024-05-29 19:40 | EDPHYS ---
Physician Documentation [facility] Name: Anny Acuna Age: 68 yrs Sex: Female : 1955 Arrival Date: 05/29/2024 Time: 17:38 Bed 9 Private MD: ED Physician Tray Garcia HPI: 05/29 18:06 This 68 yrs old Female presents to ER via Ambulatory with complaints of URI ec2 S/S. 18:06 Patient arrives today for evaluation of cough and cold symptoms ongoing for several ec2 days. Patient reports has been having cough and congestion. States that she has a history of asthma, has been using her inhaler with some improvement in symptoms. No vomiting, no diarrhea. Has some chest pain with the frequent coughing.. Historical: - Allergies: 17:58 ANTIHISTAMINES; ss 17:58 Codeine; ss 17:58 gel caps; ss 17:58 PENICILLINS; ss 17:58 Procardia; ss - PMHx: 17:58 GERD; Hyperlipidemia; Hypertension; Migraines; partial hysterectomy; Pneumonia; Renal ss Insuff Stage #3; - Immunization history:: Adult Immunizations up to date, Client reports receiving the 2nd dose of the Covid vaccine. - Infectious Disease History:: Denies. - Social history:: Smoking status: Patient denies any tobacco usage or history of. ROS: 18:06 Constitutional: as per hpi ec2 Exam: 18:06 Constitutional: GEN: NAD Head: atraumatic Eyes: EOMI Ears: External ears are ec2 normal. CV: regular rate LUNGS: no respiratory distress ABD: non-distended SKIN: no evidence of rashes MSK: no evidence of trauma Vital Signs: 17:57 BP 165 / 75; Pulse 86; Resp 19; Temp 98.3; Pulse Ox 100% ; Weight 52.62 kg; ss MDM: 17:59 Medical Screening Exam initiated ec2 18:06 Data reviewed: vital signs, nurses notes. ED course: Patient arrives today for ec2 evaluation of upper respiratory symptoms. Examination remarkable for reassuring cardiopulmonary semination. Given patient's asthma history, will give the patient steroids as well as DuoNeb, will obtain a chest x-ray to evaluate for other processes such as pneumonia. Differential diagnosis includes viral infection, pneumonia. 05/29 18:06 Order name: CXR XRAY; Complete Time: 19:40 ec2 Administered Medications: 19:01 Drug: DuoNeb Nebulize (3:1) (2.5 mg - 0.5 mg) 3 ml Nebulizer once Route: Nebulizer; 19:01 Drug: predniSONE PO 40 mg PO once Route: PO; 19:01 Drug: AZITHromycin PO 500 mg PO once Route: PO; 19:02 Drug: Tessalon Perle PO 200 mg PO once Route: PO; Disposition Summary: 05/29/24 19:40 Discharge Ordered Notes: Location: Home ec2 Condition: Stable ec2 Diagnosis - Mild intermittent asthma with (acute) exacerbation ec2 Followup: ec2 - With: Private Physician - When: - Reason: Re-evaluation by your physician Discharge Instructions: - Discharge Summary Sheet ec2 - Asthma, Adult ec2 Forms: - Medication Reconciliation Form ec2 - Antibiotic Education ec2 - Prescription Opioid Use ec2 - Patient Portal Instructions ec2 - Leadership Thank You Letter ec2 Prescriptions: - Tessalon Perles 100 mg Oral Capsule - take 1 capsule ORAL route every 8 hours As needed; 15 capsule; Refills: 0, ec2 Product Selection Permitted - Zithromax Z-Richard 250 mg Oral Tablet - take 1 tablet ORAL route as directed for 5 days Day 1 - take two (2) tablets ec2 one time. Day 2, 3, 4 , 5 take one (1) tablet once daily.; 6 tablet; Refills: 0, Product Selection Permitted - Prednisone 20 mg Oral Tablet - take 2 tablets ORAL route once daily for 5 days; 10 tablet; Refills: 0, Product ec2 Selection Permitted Signatures: Dispatcher [employer] Sharda Gore RN RN Tray Garcia MD MD ec2
[2024-05-29 22:17] VITALS: BP 165/75; TEMP 98.3; O2SAT 100
== END 2024-05-29 19:59 | disposition home or self-care (01) ==
LOC: ER 17:38
DX: J45.21 Mild intermittent asthma with (acute) exacerbation (principal)
CPT/HCPCS: 71045; 99284; J7512; J7613; J7644